=== PATIENT | female | born 1955 | race Caucasian/White ===

== ENCOUNTER 2017-08-11 14:42 | Inpatient (IN) | payer OTHER ==
--- OUTSIDE RECORDS SUMMARY | 2017-08-11 14:44 | XMS REPORT | Clinical Summary ---
:1955 Author Organization [facility] Address [address] [place] [address] Phone Care Team Providers Name Role Phone Unavailable Primary Care Provider Unavailable Allergies Active Allergy Reactions Severity Noted Date Comments Codeine 03/19/2017 Current Medications Prescription Sig. Disp. Refills Start Date End Date Status cloNIDine Place 1 patch onto Active (CATAPRES-TTS) the skin once a 0.2 mg/24 hr week. patch ranolazine Take 500 mg by Active (RANEXA) 500 MG mouth 2 (two) times 12 hr tablet daily. atorvastatin Take 40 mg by mouth Active (LIPITOR) 40 MG daily. tablet clotrimazole-beta Apply topically 2 Active methasone (two) times daily. (LOTRISONE) 1-0.05 % cream famotidine Take 20 mg by mouth Active (PEPCID) 20 MG daily. tablet insulin glargine Inject 32 Units Active (LANTUS) 100 subcutaneously unit/mL injection nightly Use as directed . clopidogrel Take 75 mg by mouth Active (PLAVIX) 75 mg daily. tablet NIFEdipine Take 90 mg by mouth 03/27/20 Discontinued (ADALAT CC) 90 MG daily. 17 24 hr tablet metoprolol Take 50 mg by mouth 03/27/20 Discontinued (LOPRESSOR) 50 MG 2 (two) times 17 tablet daily. minoxidil Take 5 mg by mouth 03/27/20 Discontinued (LONITEN) 2.5 MG 2 (two) times 17 tablet daily. ondansetron Take 4 mg by mouth 03/27/20 Discontinued (ZOFRAN) 4 MG 2 (two) times daily 17 tablet as needed for Nausea. DULoxetine Take 30 mg by mouth 03/27/20 Discontinued (CYMBALTA) 30 MG daily. 17 capsule valsartan Take 160 mg by 03/27/20 Discontinued (DIOVAN) 160 MG mouth daily. 17 tablet amLODIPine Take 1 tablet (10 30 tablet 0 2017 04/26/19 (NORVASC) 10 MG mg total) by mouth 18 tablet daily for 30 days. carvedilol Take 1 tablet (6.25 60 tablet 0 2017 04/26/19 (COREG) 6.25 MG mg total) by mouth 18 tablet 2 (two) times daily for 30 days. sertraline Take 1 tablet (25 30 tablet 0 2017 04/26/19 (ZOLOFT) 25 MG mg total) by mouth 18 tablet daily for 30 days. losartan (COZAAR) Take 1 tablet (100 30 tablet 0 2017 04/26/19 100 MG tablet mg total) by mouth 18 daily for 30 days. 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 episode) leading to expressive aphasia 03/20/2017 Encounters Date Type Specialty Care Team Description 03/24/2017 Procedure Pass Gastroenterology 03/24/2017 Surgery Gastroenterology Sushma Bradley, UPPER ENDOSCOPY,VICK PRATT 03/23/2017 Anesthesia Event Gastroenterology Calixto Ardon CRNA 03/19/2017 [facility] General Internal Yenny Kowalski Acute ischemic - Encounter Medicine MD Vic stroke (HCC) 2017 Samantha Bautista (Primary Dx);Acute MD Lupe left-sided Adjeff Titilola weakness;Speech MD Mirna disturbance, Dereck Roper unspecified MD Giovani type;Multiple sclerosis exacerbation (HCC);Expressive aphasia;Dysphagia as late effect of cerebrovascular accident (CVA);Essential hypertension;YULIA (acute kidney injury) (HCC);Cryptogenic stroke (HCC);CVA (3rd episode) leading to expressive aphasia 03/19/2017 Orders Only General Internal Medicine after 08/10/2016 Social History Tobacco Use Types Packs/Day Years Used Date Never Smoker Sex Assigned at Date Recorded Not on file Last Filed Vital Signs Vital Sign Reading Time Taken Blood Pressure 171/78 2017 7:53 AM PERIOPERATIVE NURSE Pulse 73 2017 8:23 AM PERIOPERATIVE NURSE Temperature 36.8 C (98.3 F) 2017 7:52 AM PERIOPERATIVE NURSE Respiratory Rate 14 2017 8:23 AM PERIOPERATIVE NURSE Oxygen Saturation 96% 2017 8:23 AM PERIOPERATIVE NURSE Inhaled Oxygen Concentration - - Weight 72.6 kg (160 lb) 03/19/2017 4:22 PM PERIOPERATIVE NURSE Height 157.5 cm (5' 2") 03/19/2017 4:22 PM PERIOPERATIVE NURSE Body Mass Index 29.26 03/19/2017 4:22 PM PERIOPERATIVE NURSE Plan of Treatment Not on file Procedures Procedure Name Priority Date/Time Associated Diagnosis Comments UPPER ENDOSCOPY,PEG 03/24/2017 10:00 AM Dysphasia PERIOPERATIVE NURSE CRITICAL CARE Routine 03/19/2017 5:26 PM Results for this PERIOPERATIVE NURSE procedure are in the results section. after 08/10/2016 Results RHYTHM STRIP - SCAN (03/29/2017 2:13 PM)POC-Glucose meter (2017 6:28 AM) Only the most recent of31 resultswithin the time period is included. Component Value Ref Range POC-Glucose Meter 291 (H)Comment: TESTED AT [address] 70 - 110 mg/[place] [address] Specimen Performing Laboratory Blood [facility] [address] [address] XR chest 1 view portable / bedside (03/25/2017 10:06 AM)Only the most recent of2 resultswithin the time period is included. Specimen Performing Laboratory GE RIS Narrative FINAL REPORT Chest one view. Clinical history: change in respiratory status, risk for aspiration Comparison: March 19, 2017 Discussion: A frontal chest is provided. Cardiomediastinal contours are unremarkable. There is no consolidation, juana pulmonary edema, pneumothorax, or pleural effusion. No acute bony abnormality Signed: Marilia Keane MD Report Verified Date/Time:03/25/2017 10:13:55 Reading Location: [facility] Radiology Reading Room Procedure Note Interface, External Ris In - 03/25/2017 10:16 AM PERIOPERATIVE NURSE FINAL REPORT Chest one view. Clinical history: change in respiratory status, risk for aspiration Comparison: March 19, 2017 Discussion: A frontal chest is provided. Cardiomediastinal contours are unremarkable. There is no consolidation, juana pulmonary edema, pneumothorax, or pleural effusion. No acute bony abnormality Signed: Marilia Keane MD Report Verified Date/Time: 03/25/2017 10:13:55 Reading Location: [facility] Radiology Reading Room brain without IV contrast (03/25/2017 12:46 AM) Specimen Performing Laboratory RIS Narrative FINAL REPORT CT, BRAIN, WITHOUT CONTRAST INDICATION: Focal neuro deficit, new, fixed or worsening, >6 hours TECHNIQUE: Noncontrast axial imaging was obtained from the vertex to the skull base. Axial images were reconstructed using a bone algorithm. DOSE REDUCTION: Dose modulation, iterative reconstruction, and/or weight-based adjustment of the mA/kV was utilized to reduce the radiation dose to as low as reasonably achievable. COMPARISON: March 19, 2017 FINDINGS: Cerebral parenchyma: Evolving ischemic injury in the left frontoparietal region without hemorrhagic conversion. No new infarct since the prior examination. Stable chronic changes in the remaining intracranial contents. Midline structures: Normally positioned. Cerebellum and brainstem: Commensurate volume loss. Ventricles: Normal volume. Extra-axial spaces: Unremarkable. Calvarium and skull base: Intact. Paranasal sinuses and mastoid air cells: Visible chambers are clear. Orbital contents: Included portions unremarkable. Additional findings: None. 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 No new ischemic or hemorrhagic injury to the brain parenchyma. Signed: JR Ang Robert MD Report Verified Date/Time:03/25/2017 00:48:39 Reading Location: [facility] C013Y CT Body Reading Room Procedure Note Interface, External Ris In - 03/25/2017 12:50 AM PERIOPERATIVE NURSE FINAL REPORT CT, BRAIN, WITHOUT CONTRAST INDICATION: Focal neuro deficit, new, fixed or worsening, >6 hours TECHNIQUE: Noncontrast axial imaging was obtained from the vertex to the skull base. Axial images were reconstructed using a bone algorithm. DOSE REDUCTION: Dose modulation, iterative reconstruction, and/or weight-based adjustment of the mA/kV was utilized to reduce the radiation dose to as low as reasonably achievable. COMPARISON: March 19, 2017 FINDINGS: Cerebral parenchyma: Evolving ischemic injury in the left frontoparietal region without hemorrhagic conversion. No new infarct since the prior examination. Stable chronic changes in the remaining intracranial contents. Midline structures: Normally positioned. Cerebellum and brainstem: Commensurate volume loss. Ventricles: Normal volume. Extra-axial spaces: Unremarkable. Calvarium and skull base: Intact. Paranasal sinuses and mastoid air cells: Visible chambers are clear. Orbital contents: Included portions unremarkable. Additional findings: None. 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 No new ischemic or hemorrhagic injury to the brain parenchyma. Signed: JR Sav, Santos PRATT Report Verified Date/Time: 03/25/2017 00:48:39 Reading Location: [facility] C013Y CT Body Reading Room RT OF PROCEDURE - ENDOSCOPY URL (03/24/2017 10:42 AM)CBC with platelet count + automated diff (03/24/2017 4:58 AM)Only the most recent of5 resultswithin the time period is included. Component Value Ref Range WBC 6.8 3.5 - 10.5 K/L RBC 3.49 (L) 3.93 - 5.22 M/L Hemoglobin 9.9 (L) 11.2 - 15.7 GM/DL Hematocrit 29.7 (L) 34.1 - 44.9 % MCV 85.1 79.4 - 94.8 fL MCH 28.4 25.6 - 32.2 pg MCHC 33.3 32.2 - 35.5 GM/DL RDW 13.1 11.7 - 14.4 % Platelets 215 150 - 450 K/CU MM MPV 9.8 9.4 - 12.3 fL nRBC 0 0 - 0 /100 WBC % Neutros 71 % % Lymphs 16 % % Monos 8 % % Eos 4 % % Baso 0 % # Neutros 4.79 1.56 - 6.13 K/L # Lymphs 1.11 (L) 1.18 - 3.74 K/L # Monos 0.51 (H) 0.24 - 0.36 K/L # Eos 0.27 0.04 - 0.36 K/L # Baso 0.02 0.01 - 0.08 K/L Immature Granulocytes-Relative 1 0 - 1 % Specimen Performing Laboratory Blood [facility] [address] [place] [address] Prothrombin time/INR (03/24/2017 4:58 AM) Component Value Ref Range Protime 12.9 11.7 - 14.7 seconds INR 1.0 <=5.9 Specimen Performing Laboratory Blood [address] [address] Narrative RECOMMENDED COUMADIN/WARFARIN INR THERAPY RANGES STANDARD DOSE: 2.0 - 3.0 Includes: PROPHYLAXIS for venous thrombosis, systemic embolization; TREATMENT for venous thrombosis and/or pulmonary embolus. HIGH RISK: Target INR is 2.5-3.5 for patients with mechanical heart valves. CBC with platelet count + automated diff (03/24/2017 4:58 AM)Only the most recent of5 resultswithin the time period is included. Specimen Performing Laboratory Blood Narrative The following orders were created for panel order CBC with platelet count + automated diff. Procedure Abnormality Status --------- ------ CBC with platelet count ...[[id number]]AbnormalFinal result Please view results for these tests on the individual orders. Basic Metabolic Panel (03/23/2017 5:07 AM)Only the most recent of4 resultswithin the time period is included. Component Value Ref Range Sodium 142 136 - 145 meq/L Potassium 4.0 3.5 - 5.1 meq/L Chloride 114 (H) 98 - 107 meq/L CO2 21 (L) 22 - 29 meq/L BUN 23 (H) 7 - 21 mg/dL Creatinine 1.00 0.57 - 1.25 mg/dL Glucose 198 (H) 70 - 105 mg/dL Calcium 8.7 8.4 - 10.2 mg/dL EGFR 56Comment: ESTIMATED GFR IS NOT ACCURATE mL/min/1.73 sq m CREATININE CLEARANCE IN PREDICTING GLOMERULAR FILTRATION RATE. ESTIMATED GFR IS NOT APPLICABLE FOR DIALYSIS PATIENTS. Specimen Performing Laboratory Blood - Arm, Right [address] [address] ECHOCARDIOGRAM REPORT - SCAN (03/21/2017 5:20 PM)Troponin I (03/20/2017 7:36 PM)Only the most recent of4 resultswithin the time period is included. Component Value Ref Range Troponin I 0.04 (H) 0.00 - 0.03 ng/mL Specimen Performing Laboratory Blood - Arm, Left [address] [place] [address] Narrative Troponin I (TnI) levels must be interpreted in the context of the presenting symptoms and the clinical findings. Elevated TnI levels indicate myocardial damage, but are not specific for ischemic heart disease. Elevated TnI levels are seen in patients with other cardiac conditions (including myocarditis and congestive heart failure), and slight TnI elevations occur in patients with other conditions, including sepsis, renal failure, acidosis, acute neurological disease, and persistent tachyarrhythmia. 2D Echo W/Doppler(CW/PW/Color) with saline (03/20/2017 6:05 PM) Component Value Ref Range Ejection Fraction Specimen Performing Laboratory [facility] Narrative Transthoracic Echocardiography Report (TTE) Demographics Patient Name MARGRET GRULLON Date of Study 03/20/2017 [id number] Female Visit Number [id number] Unknown [id number] Room Number 2255 Number Date of Birth1955Referring Physician Dereck Harden Age61 year(s)Real Estate Director Kiara RestrepotIzoko Macedo Interpreting Sean Lindsey MD Procedure Type of Study TTE procedure:2DECHO W DOPPLER(CW/PW/COLOR) (Routine) Indications:Stroke work up. Clinical History HGB 11 HCT 34 % CVA, HTN, MS, DM, CHF, CAD (PCI X1) Contrast Medium: Bubble Study. Height: 62 inches Weight: 72.57 kg (160 lbs) BSA: 1.74 m^2 BMI: 29.26 kg/m^2 HR: 93 bpm BP: 172/69 mmHg Summary 1. IV saline contrast injection was negative for a PFO (patent foramen ovale) at rest and post Valsalva . 2. Grade 1 diastolic dysfunction (impaired relaxation and low-normal LA pressure). Unable to estimate peak systolic PA pressure; 3. All of the LV segments are hyperkinetic . LVEF by Haro's method of disk assessment is increased (>70%). Previous Study No prior exam available for comparison. Signature Findings Left Ventricle No evidence of LV hypertrophy. Increased ( cardiac index 3.5-4.0 L/min/m2) cardiac output state at rest is noted. Grade 1 diastolic dysfunction (impaired relaxation and low- normal LA pressure). The left ventricle is chamber size (by vol index) is normal (female - LVED vol - 29-61ml/m2). All of the LV segments are hyperkinetic . Global LV systolic function hyperdynamic . LVEF by Haro's method of disk assessment is increased (>70%) . Dynamic intracavitary gradient 28 mm Hg at rest. The LVEF was measured using Haro's bi-plane method of disk . Left AtriumLA size is normal (16-34 ml/m2) . Right VentricleThe right ventricular chamber size and systolic function are within normal limits. Right Atrium RA cavity size is normal . Atrial SeptumIV saline contrast injection was negative for a PFO (patent foramen ovale) at rest and post Valsalva . Aortic Valve Mild AoV cusp thickening. AoV calcification primarily involves the left- coronary cusp(s). Mitral Valve Mild mitral annular calcification. Tricuspid ValveUnable to estimate peak systolic PA pressure; inadequate TR velocity signal. Pulmonic Valve Normal PV structure and function. AortaAortic root size (SInus of Valsalva diameter) is normal . PericardiumNo pericardial effusion is visualized. IVC/SVC/PA/PV/PleuralThe right upper pulmonary vein (RUPV) is normal . The estimated RA pressure by IVC dynamics 5-10mmHg . Chambers/Structures Left Atrium LA Volume: 37.37 ml LA Area: 12.06 cm^ 2 LA Vol. Index: 21 ml/m^2 Left Ventricle LV Septum Diastolic: 1.09 cm LV PW Diastolic: 1.15 cm LVEDV Haro's:117.11 ml LVESV Haro's:32.92 ml LVEF Haro's: 719.5 % LVEDVI: 67 ml/m^2 LVOT Diameter: 1.99 cmLVESVI: 19 ml/m^2 Aorta Ao Root S of Ursula.: 2.89 cm Doppler/Quantitative Measurements Mitral Valve MV Peak E-Wave: 0.73 m/sMV Peak A-Wave: 1.12 m/s E/ A Ratio: 0.66 Peak Gradient: 2.15 mmHg Deceleration Time: 304.9 msec MV Alfredito. Peak: Tissue Doppler E' Lateral Velocity: 0.05 m/s E/E': 15.66 LVOT Peak Velocity: 1.35 m/s Peak Gradient: 7.32 mmHg Mean Velocity: 1.01 m/s Mean Gradient: 4.38 mmHg LVOT Diameter: 1.99 cmLVOT VTI: 25.2 cm LVOT Area: 3.11 cm^2LVOT SV:78.34 ml LVOT CO: 7.29 l/min LVOT CI: 4.19 l/min/m^2 Procedure Note Interface, External Ris In - 03/21/2017 4:32 PM PERIOPERATIVE NURSE Transthoracic Echocardiography Report (TTE) Demographics Patient Name MARGRET GRULLON Date of Study 03/20/2017 Gender Female Visit Number [id number] Race Unknown Room Number 2255 Number Date of 1955 Referring Physician Dereck Harden Age 61 year(s) 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 Clinical History HGB 11 HCT 34 % CVA, HTN, MS, DM, CHF, CAD (PCI X1) Contrast Medium: Bubble Study. Height: 62 inches Weight: 72.57 kg (160 lbs) BSA: 1.74 m^2 BMI: 29.26 kg/m^2 HR: 93 bpm BP: 172/69 mmHg Summary 1. IV saline contrast injection was negative for a PFO (patent foramen ovale) at rest and post Valsalva . 2. Grade 1 diastolic dysfunction (impaired relaxation and low-normal LA pressure). Unable to estimate peak systolic PA pressure; 3. All of the LV segments are hyperkinetic . LVEF by Haro's method of disk assessment is increased (>70%). Previous Study No prior exam available for comparison. Signature Findings Left Ventricle No evidence of LV hypertrophy. Increased (cardiac index 3.5-4.0 L/min/m2) cardiac output state at rest is noted. Grade 1 diastolic dysfunction (impaired relaxation and low-normal LA pressure). The left ventricle is chamber size (by vol index) is normal (female - LVED vol - 29-61ml/m2). All of the LV segments are hyperkinetic . Global LV systolic function hyperdynamic . LVEF by Haro's method of disk assessment is increased (>70%) . Dynamic intracavitary gradient 28 mm Hg at rest. The LVEF was measured using Haro's bi-plane method of disk . Left Atrium LA size is normal (16-34 ml/m2) . Right Ventricle The right ventricular chamber size and systolic function are within normal limits. Right Atrium RA cavity size is normal . Atrial Septum IV saline contrast injection was negative for a PFO (patent foramen ovale) at rest and post Valsalva . Aortic Valve Mild AoV cusp thickening. AoV calcification primarily involves the left- coronary cusp(s). Mitral Valve Mild mitral annular calcification. Tricuspid Valve Unable to estimate peak systolic PA pressure; inadequate TR velocity signal. Pulmonic Valve Normal PV structure and function. Aorta Aortic root size (SInus of Valsalva diameter) is normal . Pericardium No pericardial effusion is visualized. IVC/SVC/PA/PV/Pleural The right upper pulmonary vein (RUPV) is normal . The estimated RA pressure by IVC dynamics 5-10mmHg . Chambers/Structures Left Atrium LA Volume: 37.37 ml LA Area: 12.06 cm^2 LA Vol. Index: 21 ml/m^2 Left Ventricle LV Septum Diastolic: 1.09 cm LV PW Diastolic: 1.15 cm LVEDV Haro's:117.11 ml LVESV Haro's:32.92 ml LVEF Haro's: 719.5 % LVEDVI: 67 ml/m^2 LVOT Diameter: 1.99 cm LVESVI: 19 ml/m^2 Aorta Ao Root S of Ursula.: 2.89 cm Doppler/Quantitative Measurements Mitral Valve MV Peak E-Wave: 0.73 m/s MV Peak A-Wave: 1.12 m/s E/A Ratio: 0.66 Peak Gradient: 2.15 mmHg Deceleration Time: 304.9 msec MV Alfredito. Peak: Tissue Doppler E' Lateral Velocity: 0.05 m/s E/E': 15.66 LVOT Peak Velocity: 1.35 m/s Peak Gradient: 7.32 mmHg Mean Velocity: 1.01 m/s Mean Gradient: 4.38 mmHg LVOT Diameter: 1.99 cm LVOT VTI: 25.2 cm LVOT Area: 3.11 cm^2 LVOT SV:78.34 ml LVOT CO: 7.29 l/min LVOT CI: 4.19 l/min/m^2 XR abdomen / KUB 1 view (03/20/2017 4:15 PM) Specimen Performing Laboratory GE RIS Narrative FINAL REPORT INDICATION: Corpak TECHNIQUE: Single view abdomen radiograph. COMPARISON: None. FINDINGS / IMPRESSION: There is a feeding tube that terminates in the region of the gastric pylorus and duodenal bulb. Visualized bowel gas pattern is unremarkable. Visualized lung and cardiac silhouette are unremarkable. Signed: Macho Massey MD Report Verified Date/Time:03/20/2017 16:20:14 Reading Location: [address] Transitional Reading Room Procedure Note Interface, External Ris In - 03/20/2017 4:22 PM PERIOPERATIVE NURSE FINAL REPORT INDICATION: Corpak TECHNIQUE: Single view abdomen radiograph. COMPARISON: None. FINDINGS / IMPRESSION: There is a feeding tube that terminates in the region of the gastric pylorus and duodenal bulb. Visualized bowel gas pattern is unremarkable. Visualized lung and cardiac silhouette are unremarkable. Signed: Macho Massey MD Report Verified Date/Time: 03/20/2017 16:20:14 Reading Location: [address] Transitional Reading Room Magnesium (03/20/2017 1:43 PM)Only the most recent of3 resultswithin the time period is included. Component Value Ref Range Magnesium 2.3Comment: Specimen slightly hemolyzed 1.6 - 2.6 mg/dL Specimen Performing Laboratory Blood - Arm, [address] [address] TSH/Free T4 If Indicated (03/20/2017 10:13 AM) Component Value Ref Range TSH 0.30 (L) 0.35 - 4.94 uIU/mL Specimen Performing Laboratory Blood - Arm, [address] [address] T4, free (03/20/2017 10:13 AM) Component Value Ref Range Free T4 1.10 0.70 - 1.48 ng/dL Specimen Performing Laboratory Blood - Arm, [address] [address] Hemoglobin A1c (03/20/2017 10:13 AM) Component Value Ref Range Hemoglobin A1C 7.2 (H) 4.3 - 6.1 % Specimen Performing Laboratory Blood - Arm, [address] [address] Vitamin B12 (03/20/2017 10:13 AM) Component Value Ref Range Vitamin B12 220 213 - 816 pg/mL Specimen Performing Laboratory Blood - [address] [address] Urea Nitrogen, random urine (03/20/2017 9:36 AM) Component Value Ref Range Urea Nitrogen, Ur 925 mg/dL Specimen Performing Laboratory Urine - Urine, [address] [address] Narrative Reference Range: No Normals Sodium, random urine (03/20/2017 9:36 AM) Component Value Ref Range Sodium Urine 62 meq/L Specimen Performing Laboratory Urine - Urine, [address] [address] Narrative Reference Range: No Normals Creatinine, random urine (03/20/2017 9:36 AM) Component Value Ref Range Creatinine, Ur 144.4 mg/dL Specimen Performing Laboratory Urine - Urine, [address] [address] Narrative Reference Range: No Normals RPR (03/20/2017 5:25 AM) Component Value Ref Range RPR Nonreactive Nonreactive Specimen Performing Laboratory Blood - Arm, [place] [address] Fasting lipid panel (03/20/2017 5:25 AM) Component Value Ref Range Triglycerides 175 mg/dL Cholesterol 156 mg/dL HDL 56 mg/dL LDL Calculated 65 mg/dL Specimen Performing Laboratory Blood - Arm, [address] [address] Narrative Triglyceride Reference Range: Low Risk <150 [id number] High Risk 200-499 Very High Risk>=500 Cholesterol Reference Range: Low Risk <200 [id number] High Risk>240 HDL Cholesterol Reference Range: Low Risk >=60 High Risk <40 LDL Cholesterol Reference Range: Optimal<100 Near [id number] [id number] Very High >=190 Fasting MR brain without IV contrast (03/20/2017 1:43 AM) Specimen Performing Laboratory GE RIS Narrative FINAL REPORT MRI brain and MRA head and neck without contrast 03/20/2017 7:17 AM CLINICAL INDICATION: Stroke Ischemic Stroke Evaluation TECHNIQUE: Multiplanar, multisequence MR imaging of the brain was performed utilizing the following imaging sequences: Axial T1, T2, FLAIR, GRE, and DWI; sagittal and coronal T1-weighted images.Two- and three-dimensional [id number] MRA images of the intra- and extracranial carotid and vertebral arterial circulations were obtained, from which maximal intensity projection 3-D reconstructions were created. COMPARISON: CT brain 03/19/2017 FINDINGS: MRI: There is small volume recent on chronic ischemia in the posterior left frontal and parietal lobes, along the periphery a small volume chronic left frontoparietal infarct. There is no hematoma, mass, hydrocephalus, or extra-axial collection. There is a small volume chronic hemorrhagic infarct centered in the right external capsule. There are chronic infarcts in the paramedian anterior right filomena and right greater than left cerebellar hemispheres. There is mild chronic microvascular ischemia in the supratentorial white matter and elsewhere within the filomena. There is generalized parenchymal volume loss. Normal appearing flow-voids are present in the major intracranial vascular structures. The sellar and pineal regions, craniocervical junction, orbits, face, and skull base are unremarkable. MRA neck: There is no vessel occlusion or flow-limiting stenosis. There is no NASCET-quantifiable cervical internal carotid artery stenosis. Flow is antegrade in both vertebral arteries. MRA zuni of Cross: There is no acute vessel occlusion. There is focal moderate stenosis without distal flow limitation in a superior division left M2 stem. Asymmetrically diminished flow related enhancement in the post M2 segment left middle cerebral artery conforms to the infarct core. There is mild stenosis in both carotid siphons. 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 IMPRESSION: 1. Small volume recent on chronic nonhemorrhagic left frontoparietal infarct. 2. Chronic ischemic changes as discussed. 3. Unremarkable extracranial MRA. 4. No evidence for acute vascular compromise in the intracranial arterial vasculature. Signed: Jimmie Coronado MD Report Verified Date/Time:03/20/2017 07:29:19 Reading Location: [address] Neuro Reading Room Procedure Note Interface, External Ris In - 03/20/2017 7:31 AM PERIOPERATIVE NURSE FINAL REPORT MRI brain and MRA head and neck without contrast 03/20/2017 7:17 AM CLINICAL INDICATION: Stroke Ischemic Stroke Evaluation TECHNIQUE: Multiplanar, multisequence MR imaging of the brain was performed utilizing the following imaging sequences: Axial T1, T2, FLAIR, GRE, and DWI; sagittal and coronal T1-weighted images. Two- and three-dimensional [id number] MRA images of the intra- and extracranial carotid and vertebral arterial circulations were obtained, from which maximal intensity projection 3-D reconstructions were created. COMPARISON: CT brain 03/19/2017 FINDINGS: MRI: There is small volume recent on chronic ischemia in the posterior left frontal and parietal lobes, along the periphery a small volume chronic left frontoparietal infarct. There is no hematoma, mass, hydrocephalus, or extra-axial collection. There is a small volume chronic hemorrhagic infarct centered in the right external capsule. There are chronic infarcts in the paramedian anterior right filomena and right greater than left cerebellar hemispheres. There is mild chronic microvascular ischemia in the supratentorial white matter and elsewhere within the filomena. There is generalized parenchymal volume loss. Normal appearing flow-voids are present in the major intracranial vascular structures. The sellar and pineal regions, craniocervical junction, orbits, face, and skull base are unremarkable. MRA neck: There is no vessel occlusion or flow-limiting stenosis. There is no NASCET-quantifiable cervical internal carotid artery stenosis. Flow is antegrade in both vertebral arteries. MRA zuni of [place]: There is no acute vessel occlusion. There is focal moderate stenosis without distal flow limitation in a superior division left M2 stem. Asymmetrically diminished flow related enhancement in the post M2 segment left middle cerebral artery conforms to the infarct core. There is mild stenosis in both carotid siphons. 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 IMPRESSION: 1. Small volume recent on chronic nonhemorrhagic left frontoparietal infarct. 2. Chronic ischemic changes as discussed. 3. Unremarkable extracranial MRA. 4. No evidence for acute vascular compromise in the intracranial arterial vasculature. Signed: Jimmie Coronado MD Report Verified Date/Time: 03/20/2017 07:29:19 Reading Location: [facility] C013V Neuro Reading Room neck without IV contrast (03/20/2017 1:43 AM) Specimen Performing Laboratory [facility] Narrative FINAL REPORT MRI brain and MRA head and neck without contrast 03/20/2017 7:17 AM CLINICAL INDICATION: Stroke Ischemic Stroke Evaluation TECHNIQUE: Multiplanar, multisequence MR imaging of the brain was performed utilizing the following imaging sequences: Axial T1, T2, FLAIR, GRE, and DWI; sagittal and coronal T1-weighted images.Two- and three-dimensional [id number] MRA images of the intra- and extracranial carotid and vertebral arterial circulations were obtained, from which maximal intensity projection 3-D reconstructions were created. COMPARISON: CT brain 03/19/2017 FINDINGS: MRI: There is small volume recent on chronic ischemia in the posterior left frontal and parietal lobes, along the periphery a small volume chronic left frontoparietal infarct. There is no hematoma, mass, hydrocephalus, or extra-axial collection. There is a small volume chronic hemorrhagic infarct centered in the right external capsule. There are chronic infarcts in the paramedian anterior right filomena and right greater than left cerebellar hemispheres. There is mild chronic microvascular ischemia in the supratentorial white matter and elsewhere within the filomena. There is generalized parenchymal volume loss. Normal appearing flow-voids are present in the major intracranial vascular structures. The sellar and pineal regions, craniocervical junction, orbits, face, and skull base are unremarkable. MRA neck: There is no vessel occlusion or flow-limiting stenosis. There is no NASCET-quantifiable cervical internal carotid artery stenosis. Flow is antegrade in both vertebral arteries. MRA zuni of [place]: There is no acute vessel occlusion. There is focal moderate stenosis without distal flow limitation in a superior division left M2 stem. Asymmetrically diminished flow related enhancement in the post M2 segment left middle cerebral artery conforms to the infarct core. There is mild stenosis in both carotid siphons. 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 IMPRESSION: 1. Small volume recent on chronic nonhemorrhagic left frontoparietal infarct. 2. Chronic ischemic changes as discussed. 3. Unremarkable extracranial MRA. 4. No evidence for acute vascular compromise in the intracranial arterial vasculature. Signed: Jimmie Coronado MD Report Verified Date/Time:03/20/2017 07:29:19 Reading Location: [address] Neuro Reading Room Procedure Note Interface, External Ris In - 03/20/2017 7:31 AM PERIOPERATIVE NURSE FINAL REPORT MRI brain and MRA head and neck without contrast 03/20/2017 7:17 AM CLINICAL INDICATION: Stroke Ischemic Stroke Evaluation TECHNIQUE: Multiplanar, multisequence MR imaging of the brain was performed utilizing the following imaging sequences: Axial T1, T2, FLAIR, GRE, and DWI; sagittal and coronal T1-weighted images. Two- and three-dimensional [id number]-hi-[id number] MRA images of the intra- and extracranial carotid and vertebral arterial circulations were obtained, from which maximal intensity projection 3-D reconstructions were created. COMPARISON: CT brain 03/19/2017 FINDINGS: MRI: There is small volume recent on chronic ischemia in the posterior left frontal and parietal lobes, along the periphery a small volume chronic left frontoparietal infarct. There is no hematoma, mass, hydrocephalus, or extra-axial collection. There is a small volume chronic hemorrhagic infarct centered in the right external capsule. There are chronic infarcts in the paramedian anterior right filomena and right greater than left cerebellar hemispheres. There is mild chronic microvascular ischemia in the supratentorial white matter and elsewhere within the filomena. There is generalized parenchymal volume loss. Normal appearing flow-voids are present in the major intracranial vascular structures. The sellar and pineal regions, craniocervical junction, orbits, face, and skull base are unremarkable. MRA neck: There is no vessel occlusion or flow-limiting stenosis. There is no NASCET-quantifiable cervical internal carotid artery stenosis. Flow is antegrade in both vertebral arteries. MRA zuni of [place]: There is no acute vessel occlusion. There is focal moderate stenosis without distal flow limitation in a superior division left M2 stem. Asymmetrically diminished flow related enhancement in the post M2 segment left middle cerebral artery conforms to the infarct core. There is mild stenosis in both carotid siphons. 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 IMPRESSION: 1. Small volume recent on chronic nonhemorrhagic left frontoparietal infarct. 2. Chronic ischemic changes as discussed. 3. Unremarkable extracranial MRA. 4. No evidence for acute vascular compromise in the intracranial arterial vasculature. Signed: Jimmie Coronado MD Report Verified Date/Time: 03/20/2017 07:29:19 Reading Location: [address] Neuro Reading Room head without IV contrast (03/20/2017 1:43 AM) Specimen Performing Laboratory [facility] FINAL REPORT MRI brain and MRA head and neck without contrast 03/20/2017 7:17 AM CLINICAL INDICATION: Stroke Ischemic Stroke Evaluation TECHNIQUE: Multiplanar, multisequence MR imaging of the brain was performed utilizing the following imaging sequences: Axial T1, T2, FLAIR, GRE, and DWI; sagittal and coronal T1-weighted images.Two- and three-dimensional [id number]-vh-[id number] MRA images of the intra- and extracranial carotid and vertebral arterial circulations were obtained, from which maximal intensity projection 3-D reconstructions were created. COMPARISON: CT brain 03/19/2017 FINDINGS: MRI: There is small volume recent on chronic ischemia in the posterior left frontal and parietal lobes, along the periphery a small volume chronic left frontoparietal infarct. There is no hematoma, mass, hydrocephalus, or extra-axial collection. There is a small volume chronic hemorrhagic infarct centered in the right external capsule. There are chronic infarcts in the paramedian anterior right filomena and right greater than left cerebellar hemispheres. There is mild chronic microvascular ischemia in the supratentorial white matter and elsewhere within the filomena. There is generalized parenchymal volume loss. Normal appearing flow-voids are present in the major intracranial vascular structures. The sellar and pineal regions, craniocervical junction, orbits, face, and skull base are unremarkable. MRA neck: There is no vessel occlusion or flow-limiting stenosis. There is no NASCET-quantifiable cervical internal carotid artery stenosis. Flow is antegrade in both vertebral arteries. MRA zuni of [place]: There is no acute vessel occlusion. There is focal moderate stenosis without distal flow limitation in a superior division left M2 stem. Asymmetrically diminished flow related enhancement in the post M2 segment left middle cerebral artery conforms to the infarct core. There is mild stenosis in both carotid siphons. 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 IMPRESSION: 1. Small volume recent on chronic nonhemorrhagic left frontoparietal infarct. 2. Chronic ischemic changes as discussed. 3. Unremarkable extracranial MRA. 4. No evidence for acute vascular compromise in the intracranial arterial vasculature. Signed: Jimmie Coronado MD Report Verified Date/Time:03/20/2017 07:29:19 Reading Location: [address] Neuro Reading Room Procedure Note Interface, External Ris In - 03/20/2017 7:31 AM PERIOPERATIVE NURSE FINAL REPORT MRI brain and MRA head and neck without contrast 03/20/2017 7:17 AM CLINICAL INDICATION: Stroke Ischemic Stroke Evaluation TECHNIQUE: Multiplanar, multisequence MR imaging of the brain was performed utilizing the following imaging sequences: Axial T1, T2, FLAIR, GRE, and DWI; sagittal and coronal T1-weighted images. Two- and three-dimensional [id number]-[id number] MRA images of the intra- and extracranial carotid and vertebral arterial circulations were obtained, from which maximal intensity projection 3-D reconstructions were created. COMPARISON: CT brain 03/19/2017 FINDINGS: MRI: There is small volume recent on chronic ischemia in the posterior left frontal and parietal lobes, along the periphery a small volume chronic left frontoparietal infarct. There is no hematoma, mass, hydrocephalus, or extra-axial collection. There is a small volume chronic hemorrhagic infarct centered in the right external capsule. There are chronic infarcts in the paramedian anterior right filomena and right greater than left cerebellar hemispheres. There is mild chronic microvascular ischemia in the supratentorial white matter and elsewhere within the filomena. There is generalized parenchymal volume loss. Normal appearing flow-voids are present in the major intracranial vascular structures. The sellar and pineal regions, craniocervical junction, orbits, face, and skull base are unremarkable. MRA neck: There is no vessel occlusion or flow-limiting stenosis. There is no NASCET-quantifiable cervical internal carotid artery stenosis. Flow is antegrade in both vertebral arteries. MRA zuni of [place]: There is no acute vessel occlusion. There is focal moderate stenosis without distal flow limitation in a superior division left M2 stem. Asymmetrically diminished flow related enhancement in the post M2 segment left middle cerebral artery conforms to the infarct core. There is mild stenosis in both carotid siphons. 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 IMPRESSION: 1. Small volume recent on chronic nonhemorrhagic left frontoparietal infarct. 2. Chronic ischemic changes as discussed. 3. Unremarkable extracranial MRA. 4. No evidence for acute vascular compromise in the intracranial arterial vasculature. Signed: Jimmie Coronado MD Report Verified Date/Time: 03/20/2017 07:29:19 Reading Location: [facility] C013 Neuro Reading Room Urine culture (03/19/2017 8:07 PM) Component Value Ref Range Result No growth Specimen Performing Laboratory Urine - Urine, [place] [address] ED ECG Interpretation (03/19/2017 5:26 PM) Narrative Yenny Kowalski MD 03/19/20175:26 PM ECG/EKG Interpretation Date/Time: 03/19/2017 4:40 PM Performed by: YENNY KOWALSKI Authorized by: YENNY KOWALSKI The ECG was interpreted by ED physician. There was no previous ECG available for comparison. The ECG is interpreted as sinus tachycardia. Ectopy noted: atrial premature contractions. Heart rate is 105 BPM. Wykoff is normal. Clinical Impression: non-specific ECGECG reviewed and does not meet STEMI criteria. Patient tolerance: Patient tolerated the procedure well with no immediate complications Critical Care (03/19/2017 5:26 PM) Narrative Yenny Kowalski MD 03/19/20175:26 PM Critical Care Performed by: YENNY KOWALSKI Authorized by: YENNY KOWALSKI Total critical care time: 80 minutes Critical care time was exclusive of separately billable procedures and treating other patients and teaching time. Critical care was necessary to treat or prevent imminent or life-threatening deterioration of the following conditions: HYDROLOGICAL TECHNICAL OFFICER failure or compromise. Critical care was time spent personally by me on the following activities: discussions with consultants, examination of patient, evaluation of patient's response to treatment, obtaining history from patient or surrogate, ordering and performing treatments and interventions, ordering and review of laboratory studies, ordering and review of radiographic studies, pulse oximetry and re-evaluation of patient's condition. Urinalysis w/ Microscopic (03/19/2017 5:09 PM) Component Value Ref Range Color, UA Yellow Clarity, UA Hazy Specific [place], UA 1.014 1.001 - 1.035 pH, UA 5.5 5.0 - 8.0 Protein, UA 300 mg/dL (A) Negative Glucose, UA 100 mg/dL (A) Negative Ketones, UA Trace (A) Negative Bilirubin, UA Negative Negative Blood, UA Negative Negative Nitrite, UA Negative Negative Leukocytes, UA Negative Negative Urobilinogen, UA 0.2 0.2 - 1.0 mg/dL RBC, UA 0 /HPF WBC, UA 12 /HPF Bacteria, UA Moderate Hyaline Casts, UA 9 /LPF Amorphous Crystals Rare Yeast Many Specimen Source Urine, [place] Specimen Performing Laboratory Urine - Urine, [place] [address] [address] ECG 12 lead (03/19/2017 4:20 PM) Specimen Performing Laboratory [facility] Narrative Ventricular Rate 105 BPM Atrial Rate 105 BPM P-R Interval 136 ms QRS Duration 84 ms Q-T Interval 346 ms QTC Calculation(Bazett) 457 ms P [place] 55 degrees R Wykoff 28 degrees T [place] 123 degrees Atrial arrhythmiaswith Premature atrial complexes ST & T wave abnormality, consider lateral ischemia No previous ECGs available Confirmed by MD CARRERO PAOLO ([id number]) on 03/20/2017 8:45:03 AM Procedure Note Interface, External Ris In - 03/20/2017 8:45 AM PERIOPERATIVE NURSE Ventricular Rate 105 BPM Atrial Rate 105 BPM P-R Interval 136 ms QRS Duration 84 ms Q-T Interval 346 ms QTC Calculation(Bazett) 457 ms P [place] 55 degrees R Wy[place] 28 degrees T [place] 123 degrees Atrial arrhythmias with Premature atrial complexes ST & T wave abnormality, consider lateral ischemia No previous ECGs available Confirmed by MD CARRERO PAOLO ([id number]) on 03/20/2017 8:45:03 AM Manual Differential (03/19/2017 3:53 PM) Specimen Performing Laboratory Blood [address] [address] PT/PTT (03/19/2017 3:53 PM) Component Value Ref Range Protime 13.5 11.7 - 14.7 seconds INR 1.0 <=5.9 PTT 24.0 22.5 - 36.0 seconds Specimen Performing Laboratory Blood [address] [address] Narrative RECOMMENDED COUMADIN/WARFARIN INR THERAPY RANGES STANDARD DOSE: 2.0 - 3.0 Includes: PROPHYLAXIS for venous thrombosis, systemic embolization; TREATMENT for venous thrombosis and/or pulmonary embolus. HIGH RISK: Target INR is 2.5-3.5 for patients with mechanical heart valves. 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 This exam was performed according to the departmental dose optimization program which includes automated exposure control, adjustment of the mA and/or kV according to the patient size, and/or use of an iterative reconstruction technique. COMPARISON: None FINDINGS: There is patchy age indeterminate ischemic disease of the right perirolandic region. There is chronic left parietal and superior temporal infarction. There are chronic appearing bilateral cerebral deep white matter infarcts. There is a chronic slitlike infarct of the lateral right basal ganglia. There is a chronic right cerebellar infarct. There is an age-indeterminate right pontine infarct. There is no hemorrhage. There is generalized parenchymal volume loss without hydrocephalus, midline shift, or apparent mass effect. There are atherosclerotic calcifications of the intracranial circulation. There are no extra-axial fluid collections. The skull is intact. The paranasal sinuses are well-aerated. IMPRESSION: Age indeterminate but possibly acute infarction of the right perirolandic region. No hemorrhage. The findings were discussed with Dr. 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 This exam was performed according to the departmental dose optimization program which includes automated exposure control, adjustment of the mA and/or kV according to the patient size, and/or use of an iterative reconstruction technique. COMPARISON: None FINDINGS: There is patchy age indeterminate ischemic disease of the right perirolandic region. There is chronic left parietal and superior temporal infarction. There are chronic appearing bilateral cerebral deep white matter infarcts. There is a chronic slitlike infarct of the lateral right basal ganglia. There is a chronic right cerebellar infarct. There is an age-indeterminate right pontine infarct. There is no hemorrhage. There is generalized parenchymal volume loss without hydrocephalus, midline shift, or apparent mass effect. There are atherosclerotic calcifications of the intracranial circulation. There are no extra-axial fluid collections. The skull is intact. The paranasal sinuses are well-aerated. IMPRESSION: Age indeterminate but possibly acute infarction of the right perirolandic region. No hemorrhage. The findings were discussed with Dr. YENNY KOWALSKI MD at Signed: Ky Campo MD Report Verified Date/Time: 03/19/2017 15:57:11 Reading Location: [facility] C013V Neuro Reading Room after 08/10/2016
--- OUTSIDE RECORDS SUMMARY | 2017-08-11 14:45 | XMS REPORT ---
:1955 [facility] Address [address] [place] [address] Care Team Providers Name Role Phone HAL KOWALSKI Unavailable Unavailable Problems This patient has no known problems. Allergies, Adverse Reactions, Alerts This patient has no known allergies or adverse reactions. Medications This patient has no known medications. Results Test Description Test Time Test Comments Text Results Atomic Results Result Comments POCT-GLUCOSE METER 2017 06:31:00 Test Item Value Reference Range Comments POC-GLUCOSE METER (BEAKER) (test 291 mg/dL 70-110 TESTED AT [address] ehgo=0994) [facility] [address] POCT-GLUCOSE [id number] 00:14:00 Test Item Value Reference Range Comments POC-GLUCOSE METER (BEAKER) 230 mg/dL 70-110 TESTED AT [address] (test mibc=6272) [facility] [address] POCT-GLUCOSE [id number] 18:29:00 Test Item Value Reference Range Comments POC-GLUCOSE METER (BEAKER) 225 mg/dL 70-110 TESTED AT [address] (test hblz=0605) [facility] [address] POCT-GLUCOSE [id number] 17:55:00 Test Item Value Reference Range Comments POC-GLUCOSE METER (BEAKER) 255 mg/dL 70-110 TESTED AT [address] (test pyai=9592) [facility] [address] POCT-GLUCOSE [id number] 11:51:00 Test Item Value Reference Range Comments POC-GLUCOSE METER (BEAKER) 237 mg/dL 70-110 TESTED AT [address] (test hmpu=4675) [facility] [address] POCT-GLUCOSE [id number] 05:18:00 Test Item Value Reference Range Comments POC-GLUCOSE METER (BEAKER) 216 mg/dL 70-110 TESTED AT [address] (test imxo=4667) [place] [id number] POCT-GLUCOSE [id number] 00:11:00 Test Item Value Reference Range Comments POC-GLUCOSE METER (BEAKER) 182 mg/dL 70-110 TESTED AT [address] (test phtw=4897) [place] [id number] POCT-GLUCOSE [id number] 17:25:00 Test Item Value Reference Range Comments POC-GLUCOSE METER (BEAKER) 191 mg/dL 70-110 TESTED AT [address] (test nbvv=1542) [place] [address] POCT-GLUCOSE [id number] 11:27:00 Test Item Value Reference Range Comments POC-GLUCOSE METER (BEAKER) 195 mg/dL 70-110 TESTED AT [address] (test bygr=6959) [place] [address] RAD, CHEST, 1 VIEW, NON [id number] 10:13:00Reason for exam:->change in respiratory status, risk for aspirationShould this be performed at the bedside?- >YesFINAL REPORT Chest one view. Clinical history: change in respiratory status,risk for aspiration Comparison: March 19, 2017 Discussion: A frontal chest is provided. Cardiomediastinal contours are unremarkable. There is no consolidation, juana pulmonary edema, pneumothorax , or pleural effusion. No acute bony abnormality Signed: Marilia Keane Verified Date/Time: 03/25/2017 10:13:55 Reading Location: [facility] Radiology Reading Room Electronically signed by: MARILIA KEANE M.D. on 03/25 10:13 AMPOCT-GLUCOSE [id number] 06:13:00 Test Item Value Reference Range Comments POC-GLUCOSE METER (BEAKER) 197 mg/dL 70-110 TESTED AT [address] (test cfbz=6289) [place] [address] CT, BRAIN, WITHOUT [id number] 00:48:00FINAL REPORT CT, BRAIN, WITHOUT CONTRAST INDICATION: Focal [...] reasonably achievable. COMPARISON: March 19, 2017 FINDINGS: Cerebralparenchyma: Evolving ischemic injury in the left frontoparietal region without hemorrhagic conversion. No new infarct since the prior examination. Stable chronic changes in the remaining intracranial contents.Midline structures: Normally positioned.Cerebellum and brainstem: Commensurate volume loss.Ventricles: Normal volume.Extra-axial spaces: Unremarkable. Calvarium and skull base: Intact.Paranasal sinuses and mastoid air cells: Visible chambers are clear.Orbital contents: Included portions unremarkable. Additional findings: None. 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 No new ischemic or hemorrhagic injury to the brain parenchyma. Signed: JR Ang Robert MDReport Verified Date/Time: 03/25/2017 00:48:39 Reading Location: [facility] C013Y CT BodyReading Room POCT-GLUCOSE [id number] 00:06:00 Test Item Value Reference Range Comments POC-GLUCOSE METER (BEAKER) 217 mg/dL 70-110 TESTED AT [address] (test ytar=7587) [place] [address] POCT-GLUCOSE [id number] 17:39:00 Test Item Value Reference Range Comments POC-GLUCOSE METER (BEAKER) 248 mg/dL 70-110 TESTED AT [address] (test htbg=6815) [place] [address] POCT-GLUCOSE [id number] 13:33:00 Test Item Value Reference Range Comments POC-GLUCOSE METER (BEAKER) 254 mg/dL 70-110 TESTED AT [address] (test nsxp=4912) [place] [id number] POCT-GLUCOSE [id number] 10:55:00 Test Item Value Reference Range Comments POC-GLUCOSE METER (BEAKER) 225 mg/dL 70-110 TESTED AT [address] (test mqem=4508) [place] [address] POCT-GLUCOSE [id number] 05:32:00 Test Item Value Reference Range Comments POC-GLUCOSE METER (BEAKER) 244 mg/dL 70-110 TESTED AT [address] (test atux=9283) [place] [address] PROTHROMBIN [id number] 05:23:00 Test Item Value Reference Range Comments PROTIME (BEAKER) (test zqnj=558) 12.9 seconds 11.7-14.7 INR (BEAKER) (test gcmk=003) 1.0 <=5.9 RECOMMENDED COUMADIN/WARFARIN INR THERAPY RANGESSTANDARD DOSE: 2.0 - 3.0 Includes: PROPHYLAXIS forvenous thrombosis, systemic embolization; TREATMENT for venous thrombosis and/or pulmonary embolus.HIGH RISK: Target INR is 2.5-3.5 for patients with mechanical heart valves.CBC W/PLT COUNT & AUTO [id number] 05:18:00 Test Item Value Reference Range Comments WHITE BLOOD CELL COUNT (BEAKER) (test eujj=975) 6.8 K/ L 3.5-10.5 RED BLOOD CELL COUNT (BEAKER) (test xofw=129) 3.49 M/ L 3.93-5.22 HEMOGLOBIN (BEAKER) (test wjcm=373) 9.9 GM/DL 11.2-15.7 HEMATOCRIT (BEAKER) (test noln=112) 29.7 % 34.1-44.9 MEAN CORPUSCULAR VOLUME (BEAKER) (test kcfz=834) 85.1 fL 79.4-94.8 MEAN CORPUSCULAR HEMOGLOBIN (BEAKER) (test 28.4 pg 25.6-32.2 cqun=599) MEAN CORPUSCULAR HEMOGLOBIN CONC (BEAKER) (test 33.3 GM/DL 32.2-35.5 kgrd=304) RED CELL DISTRIBUTION WIDTH (BEAKER) (test 13.1 % 11.7-14.4 hbtj=396) PLATELET COUNT (BEAKER) (test cxqj=410) 215 K/CU MM 150-450 MEAN PLATELET VOLUME (BEAKER) (test ldyj=631) 9.8 fL 9.4-12.3 NUCLEATED RED BLOOD CELLS (BEAKER) (test 0 /100 WBC 0-0 qvfg=891) NEUTROPHILS RELATIVE PERCENT (BEAKER) (test 71 % yscr=771) LYMPHOCYTES RELATIVE PERCENT (BEAKER) (test 16 % eryh=534) MONOCYTES RELATIVE PERCENT (BEAKER) (test 8 % tkhf=428) EOSINOPHILS RELATIVE PERCENT (BEAKER) (test 4 % nzga=323) BASOPHILS RELATIVE PERCENT (BEAKER) (test 0 % nudn=682) NEUTROPHILS ABSOLUTE COUNT (BEAKER) (test 4.79 K/ L 1.56-6.13 wooj=560) LYMPHOCYTES ABSOLUTE COUNT (BEAKER) (test 1.11 K/ L 1.18-3.74 eaev=451) MONOCYTES ABSOLUTE COUNT (BEAKER) (test 0.51 K/ L 0.24-0.36 psvb=373) EOSINOPHILS ABSOLUTE COUNT (BEAKER) (test 0.27 K/ L 0.04-0.36 xcdx=399) BASOPHILS ABSOLUTE COUNT (BEAKER) (test 0.02 K/ L 0.01-0.08 nxoz=630) IMMATURE GRANULOCYTES-RELATIVE PERCENT (BEAKER) 1 % 0-1 (test uvpr=1986) POCT-GLUCOSE [id number] 23:27:00 Test Item Value Reference Range Comments POC-GLUCOSE METER (BEAKER) 212 mg/dL 70-110 TESTED AT [address] (test oucv=0518) [place] [address] POCT-GLUCOSE [id number] 18:27:00 Test Item Value Reference Range Comments POC-GLUCOSE METER (BEAKER) 190 mg/dL 70-110 TESTED AT [address] (test dwxa=1132) [place] [address] POCT-GLUCOSE [id number] 12:25:00 Test Item Value Reference Range Comments POC-GLUCOSE METER (BEAKER) 217 mg/dL 70-110 TESTED AT [address] (test yomi=0847) [place] [address] BASIC METABOLIC [id number] 08:39:00 Test Item Value Reference Range Comments SODIUM (BEAKER) (test 142 meq/L 136-145 fwdv=365) POTASSIUM (BEAKER) (test 4.0 meq/L 3.5-5.1 zvfd=131) CHLORIDE (BEAKER) (test 114 meq/L 98-107 odea=969) CO2 (BEAKER) (test 21 meq/L 22-29 vvsh=015) BLOOD UREA NITROGEN 23 mg/dL 7-21 (BEAKER) (test yywv=278) CREATININE (BEAKER) (test 1.00 mg/dL 0.57-1.25 noun=966) GLUCOSE RANDOM (BEAKER) 198 mg/dL 70-105 (test xnex=073) CALCIUM (BEAKER) (test 8.7 mg/dL 8.4-10.2 edck=080) EGFR (BEAKER) (test 56 mL/min/1.73 sq m ESTIMATED GFR IS NOT rlyp=8420) ACCURATE CREATININE CLEARANCE IN PREDICTING GLOMERULAR FILTRATION RATE. ESTIMATED GFR IS NOT APPLICABLE FOR DIALYSIS PATIENTS. POCT-GLUCOSE [id number] 06:08:00 Test Item Value Reference Range Comments POC-GLUCOSE METER (BEAKER) 211 mg/dL 70-110 TESTED AT [facility] [address] [facility] (test hzhw=5997) [facility] [address] CBC W/PLT COUNT & AUTO [id number] 05:31:00 Test Item Value Reference Range Comments WHITE BLOOD CELL COUNT (BEAKER) (test bmne=542) 7.2 K/ L 3.5-10.5 RED BLOOD CELL COUNT (BEAKER) (test modi=633) 3.37 M/ L 3.93-5.22 HEMOGLOBIN (BEAKER) (test cswq=367) 9.5 GM/DL 11.2-15.7 HEMATOCRIT (BEAKER) (test vjqe=002) 28.7 % 34.1-44.9 MEAN CORPUSCULAR VOLUME (BEAKER) (test ldfj=324) 85.2 fL 79.4-94.8 MEAN CORPUSCULAR HEMOGLOBIN (BEAKER) (test 28.2 pg 25.6-32.2 jxbt=578) MEAN CORPUSCULAR HEMOGLOBIN CONC (BEAKER) (test 33.1 GM/DL 32.2-35.5 bwdl=693) RED CELL DISTRIBUTION WIDTH (BEAKER) (test 13.2 % 11.7-14.4 kziw=124) PLATELET COUNT (BEAKER) (test ixwa=572) 226 K/CU MM 150-450 MEAN PLATELET VOLUME (BEAKER) (test mroe=785) 9.9 fL 9.4-12.3 NUCLEATED RED BLOOD CELLS (BEAKER) (test 0 /100 WBC 0-0 vswr=370) NEUTROPHILS RELATIVE PERCENT (BEAKER) (test 65 % feqk=810) LYMPHOCYTES RELATIVE PERCENT (BEAKER) (test 20 % atjf=980) MONOCYTES RELATIVE PERCENT (BEAKER) (test 9 % hwhk=581) EOSINOPHILS RELATIVE PERCENT (BEAKER) (test 5 % hjpk=493) BASOPHILS RELATIVE PERCENT (BEAKER) (test 0 % ribs=871) NEUTROPHILS ABSOLUTE COUNT (BEAKER) (test 4.69 K/ L 1.56-6.13 tjft=057) LYMPHOCYTES ABSOLUTE COUNT (BEAKER) (test 1.46 K/ L 1.18-3.74 snzi=018) MONOCYTES ABSOLUTE COUNT (BEAKER) (test 0.61 K/ L 0.24-0.36 okyr=254) EOSINOPHILS ABSOLUTE COUNT (BEAKER) (test 0.33 K/ L 0.04-0.36 jhcl=188) BASOPHILS ABSOLUTE COUNT (BEAKER) (test 0.03 K/ L 0.01-0.08 mmhh=135) IMMATURE GRANULOCYTES-RELATIVE PERCENT (BEAKER) 1 % 0-1 (test ecoe=8709) POCT-GLUCOSE [id number] 23:54:00 Test Item Value Reference Range Comments POC-GLUCOSE METER (BEAKER) 262 mg/dL 70-110 TESTED AT [address] (test benk=4431) [place] [id number] POCT-GLUCOSE [id number] 18:24:00 Test Item Value Reference Range Comments POC-GLUCOSE METER (BEAKER) 250 mg/dL 70-110 TESTED AT [address] (test tykv=1777) [place] [id number] POCT-GLUCOSE [id number] 12:28:00 Test Item Value Reference Range Comments POC-GLUCOSE METER (BEAKER) 217 mg/dL 70-110 TESTED AT [address] (test jqlz=2682) [facility] [address] POCT-GLUCOSE [id number] 06:11:00 Test Item Value Reference Range Comments POC-GLUCOSE METER (BEAKER) 218 mg/dL 70-110 TESTED AT [address] (test rlsu=3791) [facility] [address] POCT-GLUCOSE [id number] 00:05:00 Test Item Value Reference Range Comments POC-GLUCOSE METER (BEAKER) 175 mg/dL 70-110 TESTED AT [address] (test nqwb=5779) [facility] [address] POCT-GLUCOSE [id number] 18:04:00 Test Item Value Reference Range Comments POC-GLUCOSE METER (BEAKER) 129 mg/dL 70-110 TESTED AT [address] (test ekpa=0122) [facility] [address] POCT-GLUCOSE [id number] 12:13:00 Test Item Value Reference Range Comments POC-GLUCOSE METER (BEAKER) 120 mg/dL 70-110 TESTED AT [facility] [address] [facility] (test jweu=7869) [facility] [address] URINE [id number] 10:01:00 Test Item Value Reference Range Comments CULTURE (BEAKER) (test lomu=2084) No growth CBC W/PLT COUNT & AUTO [id number] 08:51:00 Test Item Value Reference Range Comments WHITE BLOOD CELL COUNT (BEAKER) (test ulnj=488) 10.7 K/ L 3.5-10.5 RED BLOOD CELL COUNT (BEAKER) (test xwkb=466) 3.55 M/ L 3.93-5.22 HEMOGLOBIN (BEAKER) (test hmak=642) 10.2 GM/DL 11.2-15.7 HEMATOCRIT (BEAKER) (test chey=328) 30.6 % 34.1-44.9 MEAN CORPUSCULAR VOLUME (BEAKER) (test jcej=650) 86.2 fL 79.4-94.8 MEAN CORPUSCULAR HEMOGLOBIN (BEAKER) (test 28.7 pg 25.6-32.2 iqmt=339) MEAN CORPUSCULAR HEMOGLOBIN CONC (BEAKER) (test 33.3 GM/DL 32.2-35.5 eiml=689) RED CELL DISTRIBUTION WIDTH (BEAKER) (test 13.2 % 11.7-14.4 cheg=627) PLATELET COUNT (BEAKER) (test xgnd=939) 248 K/CU MM 150-450 MEAN PLATELET VOLUME (BEAKER) (test yuuu=089) 9.6 fL 9.4-12.3 NUCLEATED RED BLOOD CELLS (BEAKER) (test 0 /100 WBC 0-0 inxd=716) NEUTROPHILS RELATIVE PERCENT (BEAKER) (test 71 % fbha=188) LYMPHOCYTES RELATIVE PERCENT (BEAKER) (test 15 % umcx=719) MONOCYTES RELATIVE PERCENT (BEAKER) (test 8 % kffp=188) EOSINOPHILS RELATIVE PERCENT (BEAKER) (test 6 % mslm=043) BASOPHILS RELATIVE PERCENT (BEAKER) (test 1 % dceq=115) NEUTROPHILS ABSOLUTE COUNT (BEAKER) (test 7.59 K/ L 1.56-6.13 pzdk=856) LYMPHOCYTES ABSOLUTE COUNT (BEAKER) (test 1.61 K/ L 1.18-3.74 vlfd=170) MONOCYTES ABSOLUTE COUNT (BEAKER) (test 0.80 K/ L 0.24-0.36 slha=571) EOSINOPHILS ABSOLUTE COUNT (BEAKER) (test 0.62 K/ L 0.04-0.36 ulsw=320) BASOPHILS ABSOLUTE COUNT (BEAKER) (test 0.05 K/ L 0.01-0.08 fsag=580) IMMATURE GRANULOCYTES-RELATIVE PERCENT (BEAKER) 1 % 0-1 (test flft=1046) BASIC METABOLIC [id number] 08:11:00 Test Item Value Reference Range Comments SODIUM (BEAKER) (test 142 meq/L 136-145 tgae=821) POTASSIUM (BEAKER) (test 4.1 meq/L 3.5-5.1 wfao=392) CHLORIDE (BEAKER) (test 115 meq/L 98-107 hrbw=870) CO2 (BEAKER) (test 17 meq/L 22-29 cpyl=987) BLOOD UREA NITROGEN 36 mg/dL 7-21 (BEAKER) (test vgky=140) CREATININE (BEAKER) (test 1.44 mg/dL 0.57-1.25 cofp=899) GLUCOSE RANDOM (BEAKER) 130 mg/dL 70-105 (test kpfb=091) CALCIUM (BEAKER) (test 8.9 mg/dL 8.4-10.2 sfrj=952) EGFR (BEAKER) (test mL/min/1.73 sq m INSUFFICIENT CLINICAL DATA kqul=8229) TO CALCULATE ESTIMATED GFR. [id number] 07:18:00 Test Item Value Reference Range Comments RPR SCREEN (BEAKER) (test xgix=256) Nonreactive Nonreactive TROPONIN [id number] 20:03:00 Test Item Value Reference Range Comments TROPONIN I (BEAKER) (test yucj=920) 0.04 ng/mL 0.00-0.03 Troponin I (TnI) levels must be interpreted [...] failure, acidosis, acute neurological disease, and persistent tachyarrhythmia.POCT-GLUCOSE [id number] 18:34:00 Test Item Value Reference Range Comments POC-GLUCOSE METER (BEAKER) 80 mg/dL 70-110 TESTED AT [address] (test ksmv=7198) [facility] [address] RAD, ABDOMEN/KUB, 1 VIEW [id number] 16:20:00Reason for exam:->CorpakFINAL REPORT INDICATION: Corpak TECHNIQUE: Single view abdomen radiograph. COMPARISON: None. FINDINGS / IMPRESSION:There is a feeding tube that terminates in the region of the gastric pylorus and duodenal bulb. Visualized bowel gas pattern is unremarkable. Visualized lung and cardiac silhouette are unremarkable. Signed: Jorge A Pateleport Verified Date/ Time: 03/20/2017 16:20:14 Reading Location: [address] Reading Room 04: 20 [id number] 14:22:00 Test Item Value Reference Range Comments MAGNESIUM (BEAKER) (test 2.3 mg/dL 1.6-2.6 Specimen slightly hemolyzed aenv=976) T4, [id number] 13:10:00 Test Item Value Reference Range Comments FREE T4 (BEAKER) (test ewdt=475) 1.10 ng/dL 0.70-1.48 HEMOGLOBIN [id number] 12:28:00 Test Item Value Reference Range Comments HEMOGLOBIN A1C (BEAKER) (test ertn=217) 7.2 % 4.3-6.1 POCT-GLUCOSE [id number] 12:25:00 Test Item Value Reference Range Comments POC-GLUCOSE METER (BEAKER) 119 mg/dL 70-110 TESTED AT [facility] [address] [place] [address] (test dmmg=2399) [facility] [address] TSH/FREE T4 IF [id number] 11:29:00 Test Item Value Reference Range Comments THYROID STIMULATING HORMONE (BEAKER) (test 0.30 uIU/mL 0.35-4.94 vhqt=519) VITAMIN [id number] 11:17:00 Test Item Value Reference Range Comments VITAMIN B12 (BEAKER) (test bdxm=607) 220 pg/mL 213-816 CREATININE, RANDOM [id number] 11:07:00 Test Item Value Reference Range Comments CREATININE URINE (BEAKER) (test eipl=638) 144.4 mg/dL Reference Range: No NormalsSODIUM, RANDOM [id number] 11:07:00 Test Item Value Reference Range Comments SODIUM URINE (BEAKER) (test odcf=526) 62 meq/L Reference Range: No NormalsUREA NITROGEN, RANDOM [id number] 11:07:00 Test Item Value Reference Range Comments UREA NITROGEN URINE (BEAKER) (test lldm=638) 925 mg/dL Reference Range: No NormalsTROPONIN [id number] 10:55:00 Test Item Value Reference Range Comments TROPONIN I (BEAKER) (test ewau=846) 0.04 ng/mL 0.00-0.03 Troponin I (TnI) levels must be interpreted [...] failure, acidosis, acute neurological disease, and persistent tachyarrhythmia.MR, MRA, BRAIN, WITHOUT [id number] 07:29:00Reason for exam:->Ischemic Stroke EvaluationFINAL REPORT MRI brain and MRA head and neck without contrast 03/20/2017 7: 17AM CLINICAL INDICATION: StrokeIschemic Stroke Evaluation TECHNIQUE: Multiplanar, multisequence MR imaging of the brain was performed utilizing the following imaging sequences: Axial T1, T2, FLAIR, GRE,and DWI; sagittal and coronal T1-weighted images. Two- and three-dimensional qhvo-uf-knwdww MRA images of the intra- and extracranial carotid and vertebral arterial circulations were obtained, from which maximal intensity projection 3-D reconstructions were created. COMPARISON: CT brain 03/19/2017 FINDINGS: MRI: There is small volume recent on chronic ischemia in the posterior left frontal and parietal lobes, along the periphery a small volume chronic left frontoparietal infarct. There is no hematoma, mass, hydrocephalus, or extra- axial collection. There is a small volume chronic [...] are present in the major intracranial vascular structures.The sellar and pineal regions, craniocervical junction, orbits, face , and skull base are unremarkable. MRA neck: There is no vessel occlusion or flow-limiting stenosis. There is no NASCET-quantifiable cervical internal carotid artery stenosis. Flow is antegrade in both vertebral arteries. MRA [place]: There is no acute vessel [...] volume recent on chronic nonhemorrhagic left frontoparietal infarct.2. Chronic ischemic changes as discussed.3. Unremarkable extracranial MRA.4. No evidence for acute vascular compromise in the intracranial arterial vasculature. Signed: Jimmie Maresort Verified Date/Time: 03/20/2017 07 :29:19 Reading Location: [address] Neuro Reading Room MR, MRA, NECK, WITHOUT IV [id number] 07:29:00Reason for exam:->Ischemic Stroke EvaluationFINAL REPORT MRI brain and MRA head and neck without contrast 03/20/2017 7:17AM CLINICAL INDICATION: StrokeIschemic Stroke Evaluation TECHNIQUE: Multiplanar, multisequence MR imaging of the brain was performed utilizing the following imaging sequences: Axial T1, T2, FLAIR, GRE, and DWI; sagittal and coronal T1-weighted images. Two- and three-dimensional pkyy-ly-ljkvcx MRA images of the intra- and extracranial carotid and vertebral arterial circulations were obtained, from which maximal intensity projection 3- D reconstructions were created. COMPARISON: CT brain 03/19/2017 FINDINGS: MRI: There is small volume recent on chronic ischemia in the posterior left frontal and parietal lobes, along the periphery a small volume chronic left frontoparietal infarct. There is no hematoma, mass, hydrocephalus, or extra- axial collection. There is a small volume chronic [...] are present in the major intracranial vascular structures.The sellar and pineal regions, craniocervical junction, orbits, face , and skull base are unremarkable. MRA neck: There is no vessel occlusion or flow-limiting stenosis. There is no NASCET-quantifiable cervical internal carotid artery stenosis. Flow is antegrade in both vertebral arteries. MRA [place]: There is no acute vessel [...] volume recent on chronic nonhemorrhagic left frontoparietal infarct.2. Chronic ischemic changes as discussed.3. Unremarkable extracranial MRA.4. No evidence for acute vascular compromise in the intracranial arterial vasculature. Signed: Jimmie Mares Verified Date/Time: 03/20/2017 07 :29:19 Reading Location: [address] Neuro Reading Room MR, BRAIN, WITHOUT [id number] 07:29:00Reason for exam:->Ischemic Stroke EvaluationFINAL REPORT MRI brain and MRA head and neck without contrast 03/20/2017 7:17AM CLINICAL INDICATION: StrokeIschemic Stroke Evaluation TECHNIQUE: Multiplanar, multisequence MR imaging of the brain was performed utilizing the following imaging sequences: Axial T1, T2, FLAIR, GRE,and DWI; sagittal and coronal T1-weighted images. Two- and three-dimensional time-of- flight MRA images of the intra- and extracranial carotid and vertebral arterial circulations were obtained, from which maximal intensity projection 3-D reconstructions were created. COMPARISON: CT brain 03/19/2017 FINDINGS: MRI: There is small volume recent on chronic ischemia in the posterior left frontal and parietal lobes, along the periphery a small volume chronic left frontoparietal infarct. There is no hematoma, mass, hydrocephalus, or extra- axial collection. There is a small volume chronic [...] are present in the major intracranial vascular structures.The sellar and pineal regions, craniocervical junction, orbits, face , and skull base are unremarkable. MRA neck: There is no vessel occlusion or flow-limiting stenosis. There is no NASCET-quantifiable cervical internal carotid artery stenosis. Flow is antegrade in both vertebral arteries. MRA [place]: There is no acute vessel [...] volume recent on chronic nonhemorrhagic left frontoparietal infarct.2. Chronic ischemic changes as discussed.3. Unremarkable extracranial MRA.4. No evidence for acute vascular compromise in the intracranial arterial vasculature. Signed: Jimmie Mares Verified Date/Time: 03/20/2017 07 :29:19 Reading Location: [address] Neuro Reading Room CBC W/PLT COUNT & AUTO [id number] 06:24:00 Test Item Value Reference Range Comments WHITE BLOOD CELL COUNT (BEAKER) (test aunl=762) 13.6 K/ L 3.5-10.5 RED BLOOD CELL COUNT (BEAKER) (test gine=606) 3.97 M/ L 3.93-5.22 HEMOGLOBIN (BEAKER) (test gwfn=461) 11.0 GM/DL 11.2-15.7 HEMATOCRIT (BEAKER) (test kgwm=297) 34.0 % 34.1-44.9 MEAN CORPUSCULAR VOLUME (BEAKER) (test edab=568) 85.6 fL 79.4-94.8 MEAN CORPUSCULAR HEMOGLOBIN (BEAKER) (test 27.7 pg 25.6-32.2 pxsu=530) MEAN CORPUSCULAR HEMOGLOBIN CONC (BEAKER) (test 32.4 GM/DL 32.2-35.5 dlji=649) RED CELL DISTRIBUTION WIDTH (BEAKER) (test 13.2 % 11.7-14.4 gsoe=516) PLATELET COUNT (BEAKER) (test awak=326) 255 K/CU MM 150-450 MEAN PLATELET VOLUME (BEAKER) (test ruob=639) 10.0 fL 9.4-12.3 NUCLEATED RED BLOOD CELLS (BEAKER) (test 0 /100 WBC 0-0 rqhq=385) NEUTROPHILS RELATIVE PERCENT (BEAKER) (test 71 % fxge=869) LYMPHOCYTES RELATIVE PERCENT (BEAKER) (test 17 % ayyq=899) MONOCYTES RELATIVE PERCENT (BEAKER) (test 8 % ztzz=392) EOSINOPHILS RELATIVE PERCENT (BEAKER) (test 3 % lvip=022) BASOPHILS RELATIVE PERCENT (BEAKER) (test 0 % tedy=729) NEUTROPHILS ABSOLUTE COUNT (BEAKER) (test 9.70 K/ L 1.56-6.13 nhdu=264) LYMPHOCYTES ABSOLUTE COUNT (BEAKER) (test 2.33 K/ L 1.18-3.74 yfbb=006) MONOCYTES ABSOLUTE COUNT (BEAKER) (test 1.03 K/ L 0.24-0.36 jxgg=190) EOSINOPHILS ABSOLUTE COUNT (BEAKER) (test 0.45 K/ L 0.04-0.36 dojv=415) BASOPHILS ABSOLUTE COUNT (BEAKER) (test 0.05 K/ L 0.01-0.08 czdb=969) IMMATURE GRANULOCYTES-RELATIVE PERCENT (BEAKER) 1 % 0-1 (test ttmx=0422) BASIC METABOLIC [id number] 06:17:00 Test Item Value Reference Range Comments SODIUM (BEAKER) (test 140 meq/L 136-145 foiv=174) POTASSIUM (BEAKER) (test 4.0 meq/L 3.5-5.1 gpju=612) CHLORIDE (BEAKER) (test 111 meq/L 98-107 yhlk=739) CO2 (BEAKER) (test 19 meq/L 22-29 ncgf=006) BLOOD UREA NITROGEN 36 mg/dL 7-21 (BEAKER) (test uawq=023) CREATININE (BEAKER) (test 1.58 mg/dL 0.57-1.25 qlii=077) GLUCOSE RANDOM (BEAKER) 121 mg/dL 70-105 (test ercx=994) CALCIUM (BEAKER) (test 9.5 mg/dL 8.4-10.2 ifbd=630) EGFR (BEAKER) (test mL/min/1.73 sq m INSUFFICIENT CLINICAL DATA [id number]) TO CALCULATE ESTIMATED GFR. FastingLIPID [id number] 06:13:00 Test Item Value Reference Range Comments TRIGLYCERIDES (BEAKER) (test xyrw=095) 175 mg/dL CHOLESTEROL (BEAKER) (test ocfx=320) 156 mg/dL HDL CHOLESTEROL (BEAKER) (test qjre=801) 56 mg/dL LDL CHOLESTEROL CALCULATED (BEAKER) (test 65 mg/dL stjx=937) Triglyceride Reference Range: Low Risk <150 Borderline 150- 199 High Risk 200-499 Very High Risk >=500Cholesterol Reference Range: Low Risk <200 Borderline 200-239 High Risk > 240HDL Cholesterol Reference Range: Low Risk >=60 High Risk <40LDL Cholesterol Reference Range: Optimal <100 Near Optimal 100-129 Borderline 130-159 High 160-189 Very High >=190 FastingPOCT-GLUCOSE [id number] 05:28:00 Test Item Value Reference Range Comments POC-GLUCOSE METER (BEAKER) 115 mg/dL 70-110 TESTED AT [facility] [address] [facility] (test purx=4033) [facility] [address] TROPONIN [id number] 01:04:00 Test Item Value Reference Range Comments TROPONIN I (BEAKER) (test sych=870) 0.05 ng/mL 0.00-0.03 Troponin I (TnI) levels must be interpreted [...] failure, acidosis, acute neurological disease, and persistent tachyarrhythmia.[id number] 00:52:00 Test Item Value Reference Range Comments MAGNESIUM (BEAKER) (test kjgl=572) 1.7 mg/dL 1.6-2.6 POCT-GLUCOSE [id number] 00:11:00 Test Item Value Reference Range Comments POC-GLUCOSE METER (BEAKER) 144 mg/dL 70-110 TESTED AT [facility] [address] [facility] (test htiw=5201) [facility] [address] URINALYSIS W/ [id number] 18:31:00 Test Item Value Reference Range Comments COLOR (BEAKER) (test gmvu=234) Yellow CLARITY (BEAKER) (test mndy=542) Hazy SPECIFIC GRAVITY UA (BEAKER) (test ixoc=985) 1.014 1.001-1.035 PH UA (BEAKER) (test wtpi=998) 5.5 5.0-8.0 PROTEIN UA (BEAKER) (test kdgj=363) 300 mg/dL Negative GLUCOSE UA (BEAKER) (test fyot=663) 100 mg/dL Negative KETONES UA (BEAKER) (test uctv=166) Trace Negative BILIRUBIN UA (BEAKER) (test qdge=743) Negative Negative BLOOD UA (BEAKER) (test fdyb=122) Negative Negative NITRITE UA (BEAKER) (test jtyh=033) Negative Negative LEUKOCYTE ESTERASE UA (BEAKER) (test iwso=003) Negative Negative UROBILINOGEN UA (BEAKER) (test wimv=793) 0.2 mg/dL 0.2-1.0 RBC UA (BEAKER) (test onrz=743) 0 /HPF WBC UA (BEAKER) (test hgrp=085) 12 /HPF BACTERIA (BEAKER) (test eppp=956) Moderate HYALINE CASTS (BEAKER) (test iruu=530) 9 /LPF AMORPHOUS CRYSTALS (BEAKER) (test zzrt=1317) Rare YEAST (BEAKER) (test uxnt=5031) Many SOURCE(BEAKER) (test ajmj=3676) Urine, Meng CBC W/PLT COUNT & AUTO [id number] 16:26:00 Test Item Value Reference Range Comments WHITE BLOOD CELL COUNT (BEAKER) (test yhtp=449) 26.7 K/ L 3.5-10.5 RED BLOOD CELL COUNT (BEAKER) (test gyiu=562) 4.11 M/ L 3.93-5.22 HEMOGLOBIN (BEAKER) (test ehaz=931) 11.5 GM/DL 11.2-15.7 HEMATOCRIT (BEAKER) (test ctww=208) 35.8 % 34.1-44.9 MEAN CORPUSCULAR VOLUME (BEAKER) (test lruy=131) 87.1 fL 79.4-94.8 MEAN CORPUSCULAR HEMOGLOBIN (BEAKER) (test 28.0 pg 25.6-32.2 hizm=087) MEAN CORPUSCULAR HEMOGLOBIN CONC (BEAKER) (test 32.1 GM/DL 32.2-35.5 vhrd=692) RED CELL DISTRIBUTION WIDTH (BEAKER) (test 13.2 % 11.7-14.4 xoka=841) PLATELET COUNT (BEAKER) (test ohil=449) 270 K/CU MM 150-450 MEAN PLATELET VOLUME (BEAKER) (test bufj=075) 9.4 fL 9.4-12.3 NUCLEATED RED BLOOD CELLS (BEAKER) (test 0 /100 WBC 0-0 zhra=456) NEUTROPHILS RELATIVE PERCENT (BEAKER) (test 83 % nmsl=009) LYMPHOCYTES RELATIVE PERCENT (BEAKER) (test 9 % fhoy=729) MONOCYTES RELATIVE PERCENT (BEAKER) (test 6 % juon=757) EOSINOPHILS RELATIVE PERCENT (BEAKER) (test 0 % qylg=180) BASOPHILS RELATIVE PERCENT (BEAKER) (test 0 % qpjh=057) NEUTROPHILS ABSOLUTE COUNT (BEAKER) (test 22.27 K/ L 1.56-6.13 cwfo=495) LYMPHOCYTES ABSOLUTE COUNT (BEAKER) (test 2.49 K/ L 1.18-3.74 zxpr=365) MONOCYTES ABSOLUTE COUNT (BEAKER) (test 1.61 K/ L 0.24-0.36 ipml=881) EOSINOPHILS ABSOLUTE COUNT (BEAKER) (test 0.02 K/ L 0.04-0.36 srvk=699) BASOPHILS ABSOLUTE COUNT (BEAKER) (test 0.07 K/ L 0.01-0.08 utjf=728) IMMATURE GRANULOCYTES-RELATIVE PERCENT (BEAKER) 1 % 0-1 (test ivtc=6369) CREATINE KINASE (CK), TOTAL AND [id number] 16:25:00 Test Item Value Reference Range Comments CREATINE KINASE TOTAL (BEAKER) (test laml=774) 43 U/L 29-200 CREATINE KINASE-MB (BEAKER) (test vviy=308) 1.3 ng/mL 0.0-6.6 CREATINE KINASE-MB INDEX (BEAKER) (test cqij=087) 3.0 % CK-MB Reference Range:<6.7 Normal6.7-10.0 Borderline>10.0 AbnormalTROPONIN [id number] 16:25:00 Test Item Value Reference Range Comments TROPONIN I (BEAKER) (test puto=535) 0.05 ng/mL 0.00-0.03 Troponin I (TnI) levels must be interpreted [...] failure, acidosis, acute neurological disease, and persistent tachyarrhythmia.B-TYPE NATRIURETIC FACTOR (BNP) 16:25:00 Test Item Value Reference Range Comments B-TYPE NATRIURETIC PEPTIDE (BEAKER) (test 417 pg/mL 0-100 zwch=689) PT/[id number] 16:21:00 Test Item Value Reference Range Comments PROTIME (BEAKER) (test pprv=883) 13.5 seconds 11.7-14.7 INR (BEAKER) (test vfoj=239) 1.0 <=5.9 PARTIAL THROMBOPLASTIN TIME (BEAKER) (test 24.0 seconds 22.5-36.0 dhkh=380) RECOMMENDED COUMADIN/WARFARIN INR THERAPY RANGESSTANDARD DOSE: 2.0 - 3.0 Includes: PROPHYLAXIS forvenous thrombosis, systemic embolization; TREATMENT for venous thrombosis and/or pulmonary embolus.HIGH RISK: Target INR is 2.5-3.5 for patients with mechanical heart valves.BASIC METABOLIC [id number] 16:20: 00 Test Item Value Reference Range Comments SODIUM (BEAKER) (test 138 meq/L 136-145 oqgb=437) POTASSIUM (BEAKER) (test 4.2 meq/L 3.5-5.1 scho=375) CHLORIDE (BEAKER) (test 110 meq/L 98-107 vjrh=468) CO2 (BEAKER) (test 17 meq/L 22-29 qcfa=580) BLOOD UREA NITROGEN 32 mg/dL 7-21 (BEAKER) (test swpm=341) CREATININE (BEAKER) (test 1.58 mg/dL 0.57-1.25 lvbz=314) GLUCOSE RANDOM (BEAKER) 157 mg/dL 70-105 (test mmrj=359) CALCIUM (BEAKER) (test 9.7 mg/dL 8.4-10.2 xomn=265) EGFR (BEAKER) (test mL/min/1.73 sq m INSUFFICIENT CLINICAL DATA flut=1378) TO CALCULATE ESTIMATED GFR. [id number] 16:19:00 Test Item Value Reference Range Comments MAGNESIUM (BEAKER) (test zbhz=854) 1.7 mg/dL 1.6-2.6 RAD, CHEST, 1 VIEW, NON [id number] 16:16:00Reason for exam:->Chest painShould this be performed at the bedside?->YesFINAL REPORT Chest one view AP 03/19/2017 4:16 PM CLINICAL HISTORY: Chest pain COMPARISON: None available FINDINGS: The lungs are clear. Cardiomediastinal contours are within normal limits. The central pulmonary vasculature is not engorged. IMPRESSION: Unremarkable frontal chest radiograph. Signed: Jimmie Mares MDReport Verified Date/Time: 03/19/2017 16:16:47 Reading Location: [facility] C013W Consult Reading Room POCT-GLUCOSE [id number] 16:13:00 Test Item Value Reference Range Comments POC-GLUCOSE METER (BEAKER) 155 mg/dL 70-110 TESTED AT [facility] [address] [facility] (test xyxr=5211) [facility] [address] [address], BRAIN/STROKE [id number] 15:57:00Reason for exam:->slurred speechWhat is the patient's sedation requirement?->No SedationFINAL REPORT CT Head without contrast CLINICAL HISTORY: Motor neuron diseaseslurred speech TECHNIQUE: Contiguous axial images through the [...] Dr. YENNY KOWALSKI MD at Signed: Ky Hart MDReport Verified Date/Time : 03/19/2017 15:57:11 Reading Location: [address] Neuro Reading Room
--- NOTE | 2017-08-11 14:57 | RAD REPORT ---
EXAM DESCRIPTION: CT - Ct Stroke Brain Wo Cont - 08/11/2017 2:49 pm CLINICAL HISTORY: Code stroke, left-sided weakness, mental status change acute onset CLINICAL HISTORY: CT and MRI studies November 2016 TECHNIQUE: Axial 5 millimeter thick images of the head were obtained without IV contrast. All CT scans are performed using dose optimization technique as appropriate and may include automated exposure control or mA/KV adjustment according to patient size. FINDINGS: No intracranial hemorrhage, mass, or cerebral edema. No acute cortical based infarction id entified. Patient has a 6 centimeter sized area of encephalomalacia in the left parietal lobe. This w ould account for chronic right-sided symptoms. Small old infarction change seen in the external capsu le near the right basal ganglia. Patient has a mild to moderate chronic ischemic pattern in the cerebral white matter with mild atroph y. No extra-axial fluid collections. Ventricles are in proportion to volume loss. Visualized portions of the mastoid air cells, paranasal sinuses, and orbits are unremarkable. Findings telephoned to Dr. Ness 1453 hours IMPRESSION: No intracranial hemorrhage and no acute cortical based infarction identified. Mild to moderate chronic ischemic changes are present potentially masking nonhemorrhagic acute CVA. Moderately large left parietal and smaller right external capsule old CVA changes.
[2017-08-11 15:16] LABS: Absolute Lymphocytes (CBC) 1.8 K/uL (0.7-4.9); Absolute Monocytes 0.6 K/uL (0.1-1.3); Absolute Neutrophil 4.6 K/uL (1.8-8.0); Basophils % 0.4 % (0-1.3); Eosinophils % 1.9 % (0-4.4); Hematocrit 39.8 % (36.0-45.0); MCH 27.1 pg (27.0-35.0); MCV 81.3 fL (80-100); MPV 8.8 fL (7.6-11.3); Monocytes % 8.4 % (3.3-12.3); RBC Red Blood Cell Count 4.89 M/uL (3.86-4.86)
[2017-08-11 15:21] LABS: Protime INR 1.05
[2017-08-11 15:23] LABS: Potassium 3.5 mEq/L (3.6-5.0)
[2017-08-11 17:26] LABS: Urine Bacteria LOADED /HPF (<20); Urine Culture Reflex Order REFLEXED; Urine RBC <5 /HPF (NONE SEEN)
--- NOTE | 2017-08-11 17:29 | EDPHYS ---
Physician Documentation [facility] Name: Nury Fernandes Age: 62 yrs Sex: Female : 1955 Arrival Date: 08/11/2017 Time: 14:43 Bed 6 Private MD: ED Physician Asif Ness HPI: 08/11 15:13 This 62 yrs old Female presents to ER via EMS with complaints of S/S of ps1 Possible Stroke. 15:13 The patient's problem is reported as weakness, that is generalized. Onset: The ps1 symptoms/episode began/occurred 1 hour(s) ago. Onset: The symptoms/episode began/occurred 1343. Duration: The episodes are intermittent. Context: the episode(s) was witnessed. Associated signs and symptoms: Pertinent positives: confusion. Severity of symptoms: At their worst the symptoms were moderate. Patient's baseline: Neuro: Motor: left-sided weakness, hx of previous stroke. Does not speak, points with hand. No new FND, generalised fatigue. . Historical: - Allergies: 14:51 Codeine (Vomiting); iw 14:52 Codeine (Vomiting); ae1 - Home Meds: 14:51 aspirin 81 mg Oral chew 1 tab once daily [Active]; atorvastatin 20 mg Oral tab 2 tabs iw once daily [Active]; Breo Ellipta [Active]; clonidine HCl 0.2mg patch Oral [Active]; clopidogrel 75 mg Oral tab 1 tab once daily [Active]; DermacinRx PureFolix Oral [Active]; duloxetine 20 mg Oral cpDR 1 cap 1 TIME [Active]; furosemide 20 mg Oral tab 1 tab once daily [Active]; Humalog Pen Sub-Q [Active]; levemir [Active]; losartan 50 mg Oral tab 1 tab once daily [Active]; metoprolol tartrate 50 mg Oral tab 1 tab 2 times per day [Active]; minoxidil 2.5 mg Oral tab 1 tabs once daily [Active]; Nature-Throid 65 mg Oral tab 1 tab once daily [Active]; ondansetron HCl 4 mg Oral tab 1 tabs PRN [Active]; pantoprazole 20 mg Oral TbEC 1 tab once daily [Active]; Ranexa 500 mg Oral Tb12 1 tab 2 times per day [Active]; - PMHx: 14:51 CVA; Diabetes - NIDDM; Multiple Sclerosis; Myocardial infarction; iw - Immunization history:: Adult Immunizations up to date. - Social history:: Smoking status: Patient/guardian denies using tobacco. ROS: 17:11 Unable to obtain ROS due to pt is aphasic at baseline. ps1 Exam: 17:11 Radiologist reports: no acute hemmorhage ps1 17:11 Constitutional: This is a well developed, well nourished patient who is awake, alert, and in no acute distress. Head/Face: Normocephalic, atraumatic. Eyes: Pupils equal round and reactive to light, extra-ocular motions intact. Lids and lashes normal. Conjunctiva and sclera are non-icteric and not injected. Neck: Trachea midline, no thyromegaly or masses palpated, and no cervical lymphadenopathy. Supple, full range of motion without nuchal rigidity, or vertebral point tenderness. No Meningismus. Chest/axilla: Normal chest wall appearance and motion. Nontender with no deformity. No lesions are appreciated. Cardiovascular: Regular rate and rhythm. No gallops, murmurs, or rubs. Normal PMI, no JVD. No pulse deficits. Respiratory: Lungs have equal breath sounds bilaterally, clear to auscultation and percussion. No rales, rhonchi or wheezes noted. No increased work of breathing, no retractions or nasal flaring. Abdomen/GI: Soft, non-tender, with normal bowel sounds. No distension or tympany. No guarding or rebound. No evidence of tenderness throughout. 17:11 Musculoskeletal/extremity: Extremities: moving right arm. Points with left arm. Moving lower extremities. . 17:11 Neuro: Orientation: unable to test, aphasic from previous stroke. Vital Signs: 15:08 Temp 96.8(A); ae1 15:44 BP 171 / 77; Pulse 66; Resp 17; Pulse Ox 97% on R/A; ae1 15:50 BP 156 / 78; Pulse 69; Resp 14; Pulse Ox 100% on R/A; ae1 17:06 BP 153 / 74; Pulse 70; Resp 16; Pulse Ox 99% on R/A; ae1 17:21 BP 166 / 80; Pulse 71; Resp 17; Pulse Ox 99% on R/A; jb1 18:45 BP 169 / 86; Pulse 69; Resp 16; Pulse Ox 98% on R/A; ae1 20:42 BP 149 / 76; Pulse 68; Resp 18; Pulse Ox 97% on R/A; kl MDM: 14:49 Patient medically screened. ps1 17:29 Data reviewed: vital signs, nurses notes, lab test result(s), radiologic studies, CT ps1 scan, plain films. 08/11 14:46 Order name: glucometer results - FOR PT WITH NO ID; Complete Time: 15:50 iw 08/11 14:49 Order name: Basic Metabolic Panel; Complete Time: 15:50 ps1 08/11 14:49 Order name: CBC with Diff; Complete Time: 15:21 ps1 08/11 14:49 Order name: Protime (+inr); Complete Time: 15:50 ps1 08/11 14:49 Order name: Urine Microscopic Only; Complete Time: 17:27 ps1 08/11 16:26 Order name: Urine Dipstick--Ancillary (enter results); Complete Time: 18:09 2 08/11 14:45 Order name: CT Stroke Brain w/o Contrast; Complete Time: 14:58 iw 08/11 14:49 Order name: Stroke CXR 1 View; Complete Time: 18:09 ps1 08/11 14:49 Order name: EKG; Complete Time: 14:49 ps1 08/11 14:49 Order name: Accucheck; Complete Time: 15:36 ps1 08/11 14:49 Order name: Cardiac monitoring; Complete Time: 15:36 ps1 08/11 14:49 Order name: EKG - Nurse/Tech; Complete Time: 15:36 ps1 08/11 17:27 Order name: Urine Culture EDLA 08/11 14:49 Order name: IV Saline Lock; Complete Time: 15:36 ps1 08/11 14:49 Order name: Labs collected and sent; Complete Time: 15:36 ps1 08/11 14:49 Order name: NPO; Complete Time: 15:36 ps1 08/11 14:49 Order name: O2 Per Protocol; Complete Time: 15:37 ps1 08/11 14:49 Order name: O2 Sat Monitoring; Complete Time: 15:37 ps1 08/11 14:49 Order name: Stroke Swallow Screen; Complete Time: 16:17 ps1 08/11 14:49 Order name: Urine Dipstick-Ancillary (obtain specimen); Complete Time: 16:15 ps1 Administered Medications: 18:51 Drug: Rocephin - (cefTRIAXone) 1 grams Route: IVPB; Infused Over: 30 mins; Site: left ae1 forearm; 18:52 Follow up: IV Status: Completed infusion ae1 Point of Care Testing: Blood Glucose: 14:43 Blood Glucose: 173 mg/dL; iw Ranges: Critical Glucose Levels:Adult <50 mg/dl or >400 mg/dl <40 mg/dl or >180 mg/dl Disposition: 17:29 Chart complete. ps1 Disposition: 08/11/17 17:28 Hospitalization ordered by Morris Branham for Inpatient Admission. Preliminary diagnosis is complicated UTI. - Bed requested for Telemetry/MedSurg (Inpatient). - Status is Inpatient Admission. jd3 - Condition is Fair. - Problem is new. - Symptoms have improved. UTI on Admission? Yes Signatures: Dispatcher [employer] Erika Bee RN RN iw Eloy Gonzalez RN RN ae1 Dillon Coronel RN RN jd3 Singer, Phillip, MD MD ps1 Adore Dai 2
--- NOTE | 2017-08-11 17:29 | ER ---
Nurse's Notes [facility] Name: Nury Fernandes Age: 62 yrs Sex: Female : 1955 Arrival Date: 08/11/2017 Time: 14:43 Bed 6 Private MD: Diagnosis: complicated UTI Presentation: 08/11 14:43 Note Code stroke called at 1441, Dr. Ness at beside, pt transported to Ct via iw stretcher at 1443. 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 Transition of care: patient was not received from another setting of care. Onset of symptoms was August 11, 2017. Care prior to arrival: Glucose check: 193. 14:43 Method Of Arrival: EMS: [facility]99 EMS iw 14:43 Acuity: ALEKSANDR 2 iw 17:07 Initial Sepsis Screen: Does the patient meet any 2 criteria? Altered Mental Status. ae1 Does the patient have a suspected source of infection? Yes: Dysuria/Frequency/Urgency/UTI. Historical: - Allergies: 14:51 Codeine (Vomiting); iw 14:52 Codeine (Vomiting); ae1 - Home Meds: 14:51 aspirin 81 mg Oral chew 1 tab once daily [Active]; atorvastatin 20 mg Oral tab 2 tabs iw once daily [Active]; Breo Ellipta [Active]; clonidine HCl 0.2mg patch Oral [Active]; clopidogrel 75 mg Oral tab 1 tab once daily [Active]; DermacinRx PureFolix Oral [Active]; duloxetine 20 mg Oral cpDR 1 cap 1 TIME [Active]; furosemide 20 mg Oral tab 1 tab once daily [Active]; Humalog Pen Sub-Q [Active]; levemir [Active]; losartan 50 mg Oral tab 1 tab once daily [Active]; metoprolol tartrate 50 mg Oral tab 1 tab 2 times per day [Active]; minoxidil 2.5 mg Oral tab 1 tabs once daily [Active]; Nature-Throid 65 mg Oral tab 1 tab once daily [Active]; ondansetron HCl 4 mg Oral tab 1 tabs PRN [Active]; pantoprazole 20 mg Oral TbEC 1 tab once daily [Active]; Ranexa 500 mg Oral Tb12 1 tab 2 times per day [Active]; - PMHx: 14:51 CVA; Diabetes - NIDDM; Multiple Sclerosis; Myocardial infarction; iw - Immunization history:: Adult Immunizations up to date. - Social history:: Smoking status: Patient/guardian denies using tobacco. Screenin:10 Patient has been NPO before screening. The patient is alert, able to follow commands. ae1 The patient exhibits slurred or garbled speech. The patient is exhibiting difficulty speaking. The patient does not exhibit difficulty understanding words. The patient is unable to swallow own secretions without drooling or the need for suction. Bedside swallow screening discontinued. Patient kept NPO until cleared by Speech Therapy or Physician. 15:44 Abuse screen: Denies threats or abuse. Nutritional screening: Patient has feeding tube ae1 to abdomen. Tuberculosis screening: No symptoms or risk factors identified. 20:51 Fall Risk Secondary diagnosis (15 points) Mental Status-. kl Assessment: 14:52 Reassessment: pt transported back to ER bed 6 via stretcher, with RN. iw 15:10 General: Appears uncomfortable, unkempt, Behavior is cooperative, anxious, crying. ae1 Pain: Denies pain. Neuro: Level of Consciousness is awake, alert, obeys commands, Obeys commands within ability. Patient has previous CVAs and is unable to lift left arm. 16:27 Cardiovascular: Patient's skin is warm and dry. Respiratory: Airway is patent ae1 Respiratory effort is even, unlabored, Respiratory pattern is regular, symmetrical, Breath sounds are diminished bilaterally. GI: No signs and/or symptoms were reported involving the gastrointestinal system. PEG tube in place, clamped. Site clean. : Urine is cloudy. EENT: Oral mucosa is dry. Derm: Skin is pale. Musculoskeletal: Range of motion: limited in all extremities. 18:25 Reassessment: Patient and/or family updated on plan of care and expected duration. Pain ae1 level reassessed. Patient denies pain at this time. Patient states feeling better. 19:45 Reassessment: Patient appears in no apparent distress at this time. Neuro: Level of lp1 Consciousness is awake, alert. Respiratory: Respiratory effort is even, unlabored. Derm: Skin is fragile, is thin, Skin is dry, Skin is pale. 19:45 Reassessment: Aware of admission. lp1 21:14 Reassessment: pt assisted to med surge unit by [facility]. jd3 Vital Signs: 15:08 Temp 96.8(A); ae1 15:44 BP 171 / 77; Pulse 66; Resp 17; Pulse Ox 97% on R/A; ae1 15:50 BP 156 / 78; Pulse 69; Resp 14; Pulse Ox 100% on R/A; ae1 17:06 BP 153 / 74; Pulse 70; Resp 16; Pulse Ox 99% on R/A; ae1 17:21 BP 166 / 80; Pulse 71; Resp 17; Pulse Ox 99% on R/A; jb1 18:45 BP 169 / 86; Pulse 69; Resp 16; Pulse Ox 98% on R/A; ae1 20:42 BP 149 / 76; Pulse 68; Resp 18; Pulse Ox 97% on R/A; kl ED Course: 14:43 Patient arrived in ED. iw 14:46 Eloy Gonzalez RN is Primary Nurse. ae1 14:48 Asif Ness MD is Attending Physician. ps1 14:49 CT Stroke Brain w/o Contrast In Process Unspecified. EDMS 14:50 Triage completed. iw 15:00 Arm band placed on right wrist. ae1 15:00 Placed in gown. Bed in low position. Call light in reach. Side rails up X2. Adult w/ ae1 patient. radiation monitor on. Pulse ox on. NIBP on. Warm blanket given. 15:10 Inserted saline lock: 22 gauge in left forearm, using aseptic technique. Blood ae1 collected. 15:16 EKG done, by nuclear medical tech. reviewed by Asif Ness MD. tc 15:21 X-ray completed. Portable x-ray completed in exam room. Patient tolerated procedure ml well. 15:25 Stroke CXR 1 View In Process Unspecified. EDMS 16:14 Straight cath inserted, using sterile technique, Specimen obtained. 15 FR Returned ae1 cloudy urine. Patient tolerated well. 17:07 No provider procedures requiring assistance completed. ae1 17:28 Morris Branham MD is Hospitalizing Provider. ps1 20:51 Patient admitted, IV remains in place. kl Administered Medications: 18:51 Drug: Rocephin - (cefTRIAXone) 1 grams Route: IVPB; Infused Over: 30 mins; Site: left ae1 forearm; 18:52 Follow up: IV Status: Completed infusion ae1 Point of Care Testing: Blood Glucose: 14:43 Blood Glucose: 173 mg/dL; iw Ranges: Outcome: 17:28 Decision to Hospitalize by Provider. ps1 20:50 Admitted to Med/surg accompanied by tech, via stretcher, room 213, with chart, Report kl called to [facility] 20:50 Condition: stable 20:50 Instructed on the need for admit. 21:14 Patient left the ED. 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 Patient has . ae1
[2017-08-11 17:58] LABS: Urine Blood TRACE (NEG); Urine Glucose NEGATIVE (NEG); Urine Protein 3+ (NEG); Urine pH 5.5 (5.0-7.0)
--- NOTE | 2017-08-11 18:05 | RAD REPORT ---
EXAM DESCRIPTION: RAD - Chest Single View - 08/11/2017 3:24 pm CLINICAL HISTORY: Code stroke chest film COMPARISON: November 2016 TECHNIQUE: AP portable chest image was obtained 1501 hours . FINDINGS: Lung volumes are quite low accentuating lung markings. Under penetrated technique accentua иван lung markings as well. No focal consolidation or mass. Significant failure is not suspected. Mini mal interstitial edema or infiltrate could be masked by exam limitations. Trachea is midline. Heart a nd vasculature are normal. No measurable pleural effusion and no pneumothorax. No gross bony abnormal ity seen. No acute aortic findings suspected. IMPRESSION: Shallow inspiration showing accentuated lung markings. This is believed to be baseline b ut shallow inspiration could mask early interstitial edema or infiltrate.
[2017-08-11] MEDS ORDERED: CEFTRIAXONE/SWI 1gm 1 GM/10 ML SYR ONE (18:47)
[2017-08-11 21:24] VITALS: BMI 23.6
[2017-08-11 21:25] VITALS: O2SAT 97
[2017-08-11] MEDS ORDERED: HYDRALAZINE HCL 20 MG/ML VIAL IV PRN (21:25)
[2017-08-11] MEDS ORDERED: ENOXAPARIN 40 MG/0.4 ML SQ ONE (22:00)
--- NOTE | 2017-08-11 22:11 | EKG ---
Test Date: 2017-08-11 Test Time: 15:07:21 Bilingual Interpreter: ANGELINA MEASUREMENT RESULTS: Intervals: Rate: 65 MT: 166 QRSD: 76 QT: 492 QTc: 511 Bell: P: 23 MT: 166 QRS: -6 T: 118 INTERPRETIVE STATEMENTS: Normal sinus rhythm T wave abnormality, consider lateral ischemia Prolonged QT Abnormal ECG Compared to ECG 10/01/2016 19:40:13 no significant change from previous ECG Electronically Signed On 08-11-17 22:10:12 CDT by Eren Bolañso
[2017-08-11] MEDS: Levofloxacin 750mg IV 750 MG/150 ML BAG IV SCH (22:50)
[2017-08-11] MEDS: NA CHLORIDE 0.9% 1,000 ML IV SCH (22:50)
[2017-08-12 05:33] LABS: Albumin 3.1 g/dL (3.2-5.5); Bilirubin Total 0.9 mg/dL (0.3-1.2); Protein, Total 6.3 g/dL (6.0-8.3)
[2017-08-12 06:07] LABS: Absolute Lymphocytes (CBC) 2.2 K/uL (0.7-4.9); Absolute Monocytes 0.6 K/uL (0.1-1.3); Absolute Neutrophil 3.4 K/uL (1.8-8.0); Basophils % 0.6 % (0-1.3); Eosinophils % 1.5 % (0-4.4); Hematocrit 36.6 % (36.0-45.0); Lymphocytes % 34.6 % (15.3-44.8); MCH 26.7 pg (27.0-35.0); MCV 81.2 fL (80-100); MPV 9.3 fL (7.6-11.3); Monocytes % 9.1 % (3.3-12.3)
[2017-08-12] MEDS ORDERED: PNEUMOCOCCAL VACCINE 0.5 ML IMVAC ONE (08:00)
[2017-08-12] MEDS ORDERED: POTASSIUM 25 MEQ EFFERV TAB PO ONE (08:56)
[2017-08-12] MEDS ORDERED: POTASSIUM 25 MEQ EFFERV TAB FT ONE (08:56)
--- NOTE | 2017-08-12 09:32 | P.HP ---
Certification for Inpatient Patient admitted to: Inpatient With expected LOS: >2 Midnights Patient will require the following post-hospital care: None Practitioner: I am a practitioner with admitting privileges, knowledge of patient current condition, hospital course, and medical plan of care. Services: Services provided to patient in accordance with Admission requirements found in Title 42 Section 412.3 of the Code of Federal Regulations Patient History Date of Service: 08/12/17 Primary Care Provider: Carrol Reason for admission: Complicated UTI History of Present Illness: Patient is an office patient of [facility]. 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 She had a decrease level of consciousness, per her . Who called ems. In the ER she had a negative CT scan, but was found to have a UTI. She was at her baseline mental status after recieving some fluids and rocephin. Allergies codeine Adverse Reaction (Verified 10/01/16 22:33) Itching/Hives/Rash Home Medications: Aspirin [Aspir-Low] 81 mg PO DAILY 08/11/17 Atorvastatin Calcium 10 mg PO DAILY 08/11/17 Carvedilol 25 mg PO BID 08/11/17 Clopidogrel Bisulfate [Plavix] 75 mg PO DAILY 08/11/17 Famotidine 20 mg PO DAILY 08/11/17 Folic Acid 1 mg PO DAILY 08/11/17 Hydralazine [Apresoline] 25 mg PO TID 08/11/17 Losartan Potassium 100 mg PO DAILY 08/11/17 Magnesium Chloride [Slow-Mag] 64 mg PO DAILY 08/11/17 Metformin HCl 500 mg PO BID 08/11/17 Nifedipine [Nifedipine ER] 60 mg PO BEDTIME 08/11/17 Ranolazine [Ranexa] 500 mg PO DAILY 08/11/17 Sertraline HCl 50 mg PO DAILY 08/11/17 - Past Medical/Surgical History Has patient received pneumonia vaccine in the past: No Diabetic: Yes -: MS -: [place] -: CVA -: HTN -: DM2 -: Hypothyroid -: seizures -: Cardiac stents -: Cholecystectomy -: Appendectomy -: hysterectomy -: cervical ca - Social History Smoking Status: Never smoker Alcohol use: No CD- Drugs: No Caffeine use: No Place of Residence: Home Review of Systems is unable to be obtained (She is at her baseline. However cannot answer questions) Physical Examination - Vital Signs Temperature: 96.5 F Blood Pressure: 207/86 Pulse: 54 Respirations: 16 Pulse Ox (%): 92 - Physical Exam General: Alert (Patient is at her baseline. Is non verbal ), In no apparent distress HEENT: Atraumatic, PERRLA, Mucous membr. moist/pink, EOMI, Sclerae nonicteric Neck: Supple, 2+ carotid pulse no bruit, No LAD, Without JVD or thyroid abnormality Respiratory: Clear to auscultation bilaterally, Normal air movement Cardiovascular: Regular rate/rhythm, Normal S1 S2 Gastrointestinal: Normal bowel sounds, No tenderness Musculoskeletal: No tenderness Integumentary: No rashes Neurological: Normal strength at 5/5 x4 extr, Normal tone, Normal affect, Abnormal gait (left sided Hemiplegia), Abnormal speech (chronic dysphagia) Lymphatics: No axilla or inguinal lymphadenopathy - Studies Laboratory Data (last 24 hrs) 08/11/17 15:00: PT 12.4, INR 1.05 08/11/17 15:00: WBC 7.1, Hgb 13.3, Hct 39.8, Plt Count 213 08/11/17 15:00: Sodium 138, Potassium 3.5 L, BUN 24 H, Creatinine 1.00, Glucose 182 H Assessment and Plan - Problems (Diagnosis) (1) UTI (urinary tract infection) Onset Date: 10/05/16 Current Visit: No Status: Acute Plan: Will treat as a complicated UTI. Will keep her a day. If she continue to improve we can discharge the patient home. Qualifiers: Urinary tract infection type: acute cystitis Hematuria presence: without hematuria Qualified Code(s): N30.00 - Acute cystitis without hematuria (2) History of CVA with residual deficit Current Visit: Yes Status: Acute Plan: Will keep her on fall percautions. Nothing per mouth. All meds and feeding through the g-tube. Will have PT follow the patient (3) Diabetes Onset Date: 12/09/16 Current Visit: No Status: Acute Plan: Patient is doing very well, had recent labs in the office. Will have her restart the metformin. Once feedings are started. Qualifiers: Diabetes mellitus type: type 2 Diabetes mellitus usp insulin use: without usp use Diabetes mellitus complication status: without complication Qualified Code(s): E11.9 - Type 2 diabetes mellitus without complications (4) Hypertension Onset Date: 10/05/16 Current Visit: No Status: Acute Plan: will restart home medications. Adjust as necessary Qualifiers: Hypertension type: essential hypertension Discharge Plan: Home Plan to discharge in: 24 Hours - Advance Directives Does patient have a Living Will: No Does patient have a Durable POA for Healthcare: Yes - Code Status/Comfort Care Code Status Assessed: No Code Status: Full Code Physician Review: Patient Assessed, Agree with Above Assessment and Plan Critical Care: No Time Spent Managing Pts Care (In Minutes): 45
[2017-08-12] MEDS: CARVEDILOL 25 MG TAB PO SCH ×2 (10:24→21:56)
[2017-08-12] MEDS: SERTRALINE HCL 50 MG TAB PO SCH (10:24)
[2017-08-12] MEDS: LOSARTAN POTASSIUM 50 MG TABLET PO SCH (10:24)
[2017-08-12] MEDS: NA CHLORIDE 0.9% 1,000 ML IV SCH (14:46)
[2017-08-12] MEDS: HYDRALAZINE HCL 25 MG TABLET PO SCH ×2 (14:46→21:56)
[2017-08-12] MEDS: METFORMIN HCL 500 MG TAB PO SCH (17:00)
[2017-08-12] MEDS ORDERED: ENOXAPARIN 40 MG/0.4 ML SQ SCH (17:00)
[2017-08-12] MEDS: GLUCERNA 1.5 CAL 1,000 ML BOT FT SCH ×2 (18:43→21:56)
[2017-08-12] MEDS ORDERED: NIFEDIPINE XL 60 MG TABLET PO SCH (21:00)
[2017-08-12] MEDS ORDERED: ATORVASTATIN 10 MG TAB PO SCH (21:00)
[2017-08-12] MEDS ORDERED: CARVEDILOL 25 MG TAB PO SCH (21:00)
[2017-08-12] MEDS: Levofloxacin 750mg IV 750 MG/150 ML BAG IV SCH (21:56)
[2017-08-13] MEDS: NA CHLORIDE 0.9% 1,000 ML IV SCH (00:28)
[2017-08-13 06:33] LABS: Absolute Lymphocytes (CBC) 1.4 K/uL (0.7-4.9); Absolute Monocytes 0.5 K/uL (0.1-1.3); Absolute Neutrophil 3.5 K/uL (1.8-8.0); Basophils % 0.3 % (0-1.3); Eosinophils % 1.5 % (0-4.4); Hematocrit 35.8 % (36.0-45.0); MCH 26.9 pg (27.0-35.0); MCV 81.3 fL (80-100); MPV 8.8 fL (7.6-11.3); Monocytes % 9.1 % (3.3-12.3)
[2017-08-13 07:06] LABS: Potassium 3.7 mEq/L (3.6-5.0)
[2017-08-13 08:58] VITALS: BP 126/59; TEMP 98.7
[2017-08-13] MEDS ORDERED: MAGNESIUM CHLORIDE 64 MG TAB PO SCH (09:00)
[2017-08-13] MEDS ORDERED: SERTRALINE HCL 50 MG TAB PO SCH (09:00)
[2017-08-13] MEDS ORDERED: LOSARTAN POTASSIUM 50 MG TABLET PO SCH (09:00)
[2017-08-13] MEDS ORDERED: ASPIRIN EC 81 MG TAB PO SCH (09:00)
[2017-08-13] MEDS ORDERED: FAMOTIDINE 20 MG TAB PO SCH (09:00)
[2017-08-13] MEDS ORDERED: FOLIC ACID 1 MG TABLET PO SCH (09:00)
[2017-08-13] MEDS: GLUCERNA 1.5 CAL 1,000 ML BOT FT SCH (09:00)
[2017-08-13] MEDS: HYDRALAZINE HCL 25 MG TABLET PO SCH (09:13)
[2017-08-13] MEDS: METFORMIN HCL 500 MG TAB PO SCH (09:13)
[2017-08-13] MEDS: CARVEDILOL 25 MG TAB PO SCH (09:14)
[2017-08-13] MEDS: LOSARTAN POTASSIUM 50 MG TABLET PO SCH (09:14)
[2017-08-13] MEDS: SERTRALINE HCL 50 MG TAB PO SCH (09:15)
--- NOTE | 2017-08-13 09:34 | P.DS ---
Admission Date: 08/11/17 Discharge Date: 08/13/17 Primary Care Provider: Carrol Disposition: ROUTINE DISCHARGE Discharge Condition: GOOD Reason for Admission: Complicated UTI - Problems (1) UTI (urinary tract infection) Onset Date: 10/05/16 Current Visit: No Status: Acute Qualifiers: Urinary tract infection type: acute cystitis Hematuria presence: without hematuria Qualified Code(s): N30.00 - Acute cystitis without hematuria (2) History of CVA with residual deficit Current Visit: Yes Status: Acute (3) Diabetes Onset Date: 12/09/16 Current Visit: No Status: Acute Qualifiers: Diabetes mellitus type: type 2 Diabetes mellitus middle or intermediate school principal insulin use: without middle or intermediate school principal use Diabetes mellitus complication status: without complication Qualified Code(s): E11.9 - Type 2 diabetes mellitus without complications (4) Hypertension Onset Date: 10/05/16 Current Visit: No Status: Acute Qualifiers: Hypertension type: essential hypertension Brief History of Present Illness: Patient is an office patient of [facility]. 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 She had a decrease level of consciousness, per her . Who called ems. In the ER she had a negative CT scan, but was found to have a UTI. She was at her baseline mental status after recieving some fluids and rocephin. Hospital Course: Patient was admitted to the floor. Started on Levaquin. Was found to have an ESBL on culture. She is improving. No compliants. Will discharge her home and have the patient follow up in the office. Vital Signs/Physical Exam: Temp Pulse Resp BP Pulse Ox 98.7 F 72 18 126/59 L 92 08/13/17 08:00 08/13/17 08:00 08/13/17 08:00 08/13/17 08:00 08/13/17 08:00 General: Alert (cannot speak this is chronic), In no apparent distress HEENT: Atraumatic, PERRLA, EOMI Neck: Supple, JVD not distended Respiratory: Clear to auscultation bilaterally, Normal air movement Cardiovascular: Regular rate/rhythm, Normal S1 S2 Gastrointestinal: Normal bowel sounds, No tenderness Musculoskeletal: No tenderness Integumentary: No rashes Neurological: Normal speech, Normal tone, Normal affect Lymphatics: No axilla or inguinal lymphadenopathy Laboratory Data at Discharge: WBC 5.4 K/uL (4.3-10.9) 08/13/17 06:05 Hgb 11.8 g/dL (12.0-15.0) L 08/13/17 06:05 Hct 35.8 % (36.0-45.0) L 08/13/17 06:05 Plt Count 197 K/uL (152-406) 08/13/17 06:05 PT 12.4 SECONDS (9.5-12.5) 08/11/17 15:00 INR 1.05 08/11/17 15:00 Sodium 139 mEq/L (135-145) 08/13/17 06:05 Potassium 3.7 mEq/L (3.6-5.0) 08/13/17 06:05 BUN 23 mg/dL (6-20) H 08/13/17 06:05 Creatinine 0.94 mg/dL (0.44-1.00) 08/13/17 06:05 Glucose 161 mg/dL (65-120) H 08/13/17 06:05 Total Bilirubin 0.9 mg/dL (0.3-1.2) 08/12/17 04:51 AST 20 IU/L (10-42) 08/12/17 04:51 ALT 16 IU/L (10-60) 08/12/17 04:51 Alkaline Phosphatase 93 IU/L (42-121) 08/12/17 04:51 Home Medications: Aspirin [Aspir-Low] 81 mg PO DAILY 08/11/17 Atorvastatin Calcium 10 mg PO DAILY 08/11/17 Carvedilol 25 mg PO BID 08/11/17 Clopidogrel Bisulfate [Plavix] 75 mg PO DAILY 08/11/17 Famotidine 20 mg PO DAILY 08/11/17 Folic Acid 1 mg PO DAILY 08/11/17 Hydralazine [Apresoline] 25 mg PO TID 08/11/17 Losartan Potassium 100 mg PO DAILY 08/11/17 Magnesium Chloride [Slow-Mag] 64 mg PO DAILY 08/11/17 Metformin HCl 500 mg PO BID 08/11/17 Nifedipine [Nifedipine ER] 60 mg PO BEDTIME 08/11/17 Ranolazine [Ranexa] 500 mg PO DAILY 08/11/17 Sertraline HCl 50 mg PO DAILY 08/11/17 Levofloxacin [Levaquin] 500 mg PO DAILY 7 Days #7 tablet 08/13/17 New Medications: Levofloxacin [Levaquin] 500 mg PO DAILY 7 Days #7 tablet Diet: ADA (through gastric tube) Activity: Fall precautions Followup: Morris Branham MD [Primary Care Provider] - 1-2 Weeks Time spent managing pt's care (in minutes): 25
== END 2017-08-13 10:35 | disposition home or self-care (01) | DRG 690 ==
LOC: ER 14:42 → ERHOLD 17:31 → 2ND 19:58
PROVIDERS: ADMIT Internal Medicine; ATTEND Internal Medicine
DX: N30.00 Acute cystitis without hematuria (principal); I69.954 Hemiplegia and hemiparesis following unspecified cerebrovascular disease affecting left non-dominant side; B96.20 Unspecified Escherichia coli [E. coli] as the cause of diseases classified elsewhere; Z16.12 Extended spectrum beta lactamase (ESBL) resistance; I69.991 Dysphagia following unspecified cerebrovascular disease; R13.10 Dysphagia, unspecified; E11.9 Type 2 diabetes mellitus without complications; I10 Essential (primary) hypertension; G35 Multiple sclerosis; Z79.82 Long term (current) use of aspirin; I25.2 Old myocardial infarction; Z95.5 Presence of coronary angioplasty implant and graft; E03.9 Hypothyroidism, unspecified
CPT/HCPCS: 36415; 51702; 70450; 71045; 80048; 80053; 81003; 81015; 82962; 85025; 85610; 87077; 87086; 87088; 87186; 93005; 96374; 97163; 99285; J0360; J0696; J1650; J7030